=== PATIENT | female | born 1960 | race Caucasian/White ===

== ENCOUNTER 2018-05-31 06:57 | Day surgery (SDC) | payer BC ==
[~2018-05-31 06:57] MED LIST: Acetaminophen TAB* 325 MG PO PRN; Buffered Lidocaine 0.9% SYRIN* 5 ML/SYR SYRINGE INTRADERM ONE
[2018-05-31] MEDS ORDERED: Midazolam* 1 MG/ML 2 ML VIAL (2 MG) ONE (07:30)
[2018-05-31] MEDS ORDERED: fentaNYL* 50 MCG/ML 2 ML VIAL (100 MCG VIAL) ONE (07:30)
[2018-05-31] MEDS ORDERED: Ondansetron INJ* 2 MG/ML VIAL ONE (07:40)
[2018-05-31] MEDS ORDERED: Lidocaine 2% PF * 5 ML VIAL ONE (07:48)
[2018-05-31] MEDS ORDERED: Propofol* 10 MG/ML 20 ML BTL IV PUSH ONE (07:48)
[2018-05-31 08:27] VITALS: BP 128/79
[2018-05-31] MEDS ORDERED: Neomycin/Polymy/Dex OPHTH.OIN* 3.5 GM ONE (10:58)
[2018-05-31] MEDS ORDERED: Tetracaine 0.5% OPTH.SOL 4 ML* 1 DROP BTL ONE (10:58)
[2018-05-31] MEDS ORDERED: Lidocaine 1%* 5 ML VIAL ONE (10:58)
[2018-05-31] MEDS ORDERED: acetaZOLAMIDE TAB* 250 MG ONE (10:58)
[2018-05-31] MEDS ORDERED: Phenylephrine 2.5% OPTH.SOL* 2 ML BTL ONE (10:58)
[2018-05-31] MEDS ORDERED: Tropicamide 1% OPTH.SOL* BTL ONE (10:58)
[2018-05-31] MEDS ORDERED: Cyclopentolate 1% OPTH.SOL* 2 ML BTL ONE (10:58)
[2018-05-31] MEDS ORDERED: Povidone Iodine 5% OPTH* 30 ML BTL ONE (10:58)
[2018-05-31] MEDS ORDERED: Ketorolac 0.5% OPHTH (NF) 0.5 % 5 ML BTL ONE (10:58)
--- NOTE | 2018-06-07 09:02 | OP ---
DATE OF OPERATION: 05/31/18 - [facility] DATE OF : 58 SURGEON: Neftaly Da Silva MD ANESTHESIA: Monitored anesthesia care. PRE-OP DIAGNOSIS: Cataract, right eye. POST-OP DIAGNOSIS: Cataract, right eye. OPERATIVE PROCEDURE: Extracapsular cataract extraction of the right eye with intraocular lens implant. IMPLANTS: SN60WF 24.5 diopter lens of the right eye. COMPLICATIONS: None. DESCRIPTION OF PROCEDURE: The patient was given phenylephrine 2.5 % and cyclopentolate 1% eye drops to the operative eye in the preoperative area. The patient was taken to the operating room where a time-out was taken to identify the correct patient, site, and side of surgery. The patient's right eye was prepped and draped in the usual sterile fashion with 5% Betadine. A second time -out was taken to verify the correct patient, side, and site of surgery, as well as the correct lens implant. A lid speculum was placed to the right eye. A 1mm paracentesis blade was used to make a clear corneal incision. Preservative -free 1% lidocaine was injected into the anterior chamber. DisCoVisc was then injected into the anterior chamber. A 2.75 mm keratome blade was used to make a triplanar incision. A cystotome initiated a capsulorrhexis, which was completed with Utrata forceps in a continuous and curvilinear manner. Hydrodissection of the lens was performed with BSS on a cannula. The lens could be spun in a capsular bag. The phacoemulsification handpiece was used with a [id number] technique to remove the nucleus. The I/A hand-piece then removed the residual cortical lens material. DisCoVisc was injected to inflate the capsular bag. The planned SN60WF 24.5 diopter lens was injected into the capsular bag. The residual DisCoVisc was removed from the eye with the I/A handpiece. The corneal incisions were hydrated and no leaks occurred at physiologic pressure around 20 mmHg per palpation. The lid speculum was removed and drapes were removed. Maxitrol ointment was placed to the surface of the operative eye. An adhesive patch and shield was then placed on the operative eye. The patient was taken to the postoperative area in stable condition. [id number]/[facility] #: [id number] [facility]
== END 2018-05-31 08:34 | disposition home or self-care (01) ==
LOC: OREAST 06:57
PROVIDERS: ATTEND Student in an Organized Health Care Education/Training Program
DX: H25.11 Age-related nuclear cataract, right eye (principal); H53.2 Diplopia; Z87.891 Personal history of nicotine dependence; F41.8 Other specified anxiety disorders; G35 Multiple sclerosis
CPT/HCPCS: A9270-GY; J2250; J2405; J2704; J3010; V2632

== ENCOUNTER 2018-06-07 08:59 | Day surgery (SDC) | payer BC ==
[2018-06-07] MEDS ORDERED: Midazolam* 1 MG/ML 2 ML VIAL (2 MG) ONE ×2 (09:44→10:14)
[2018-06-07] MEDS ORDERED: Ondansetron INJ* 2 MG/ML VIAL IV ONE (09:53)
[2018-06-07] MEDS ORDERED: Ondansetron INJ* 2 MG/ML VIAL ONE (09:55)
[2018-06-07] MEDS ORDERED: Tetracaine 0.5% OPTH.SOL 4 ML* 1 DROP BTL ONE (10:20)
[2018-06-07] MEDS ORDERED: Povidone Iodine 5% OPTH* 30 ML BTL ONE (10:20)
[2018-06-07] MEDS ORDERED: Cyclopentolate 1% OPTH.SOL* 2 ML BTL ONE (10:20)
[2018-06-07] MEDS ORDERED: Ketorolac 0.5% OPHTH (NF) 0.5 % 5 ML BTL ONE (10:20)
[2018-06-07] MEDS ORDERED: Lidocaine 1%* 5 ML VIAL ONE (10:20)
[2018-06-07] MEDS ORDERED: acetaZOLAMIDE TAB* 250 MG ONE (10:20)
[2018-06-07] MEDS ORDERED: Neomycin/Polymy/Dex OPHTH.OIN* 3.5 GM ONE (10:20)
[2018-06-07] MEDS ORDERED: Phenylephrine 2.5% OPTH.SOL* 2 ML BTL ONE (10:20)
[2018-06-07] MEDS ORDERED: Tropicamide 1% OPTH.SOL* BTL ONE (10:20)
[2018-06-07 10:49] VITALS: BP 129/76
--- NOTE | 2018-06-08 10:54 | OP ---
DATE OF OPERATION: 06/07/18 - [facility] DATE OF : 58 SURGEON: Neftaly Da Silva MD ANESTHESIA: Monitored anesthesia care. PREOPERATIVE DIAGNOSIS: Cataract, left eye. POSTOPERATIVE DIAGNOSIS: Cataract, left eye. OPERATIVE PROCEDURE: Extracapsular cataract extraction of the left eye with intraocular lens implant. IMPLANT: SN60WF 24.0 diopter lens to the left eye. COMPLICATIONS: None. DESCRIPTION OF PROCEDURE: The patient was given phenylephrine 2.5 % and cyclopentolate 1% eye drops to the operative eye in the preoperative area. The patient was taken to the operating room where a time-out was taken to identify the correct patient, site, and side of surgery. The patient's left eye was prepped and draped in the usual sterile fashion with 5% Betadine. A second time -out was taken to verify the correct patient, side, and site of surgery, as well as the correct lens implant. A lid speculum was placed to the left eye. A 1mm paracentesis blade was used to make a clear corneal incision. Preservative-free 1% lidocaine was injected into the anterior chamber. DisCoVisc was then injected into the anterior chamber. A 2.75 mm keratome blade was used to make a triplanar incision. A cystotome initiated a capsulorrhexis, which was completed with Utrata forceps in a continuous and curvilinear manner. Hydrodissection of the lens was performed with BSS on a cannula. The lens could be spun in a capsular bag. The phacoemulsification handpiece was used with a [id number] technique to remove the nucleus. The I/A handpiece then removed the residual cortical lens material. DisCoVisc was injected to inflate the capsular bag. The planned SN60WF 24.0 Diopter lens was injected into the capsular bag. The residual DisCoVisc was removed from the eye with the I/A handpiece. The corneal incisions were hydrated and no leaks occurred at physiologic pressure around 20 mmHg per palpation. The lid speculum was removed and drapes were removed. Maxitrol ointment was placed to the surface of the operative eye. An adhesive patch and shield was then placed on the operative eye. The patient was taken to the postoperative area in stable condition. [id number]/[facility] #: [id number] [facility]
== END 2018-06-07 10:52 | disposition home or self-care (01) ==
LOC: OREAST 08:59
PROVIDERS: ATTEND Student in an Organized Health Care Education/Training Program
DX: H25.12 Age-related nuclear cataract, left eye (principal); H53.2 Diplopia; G47.33 Obstructive sleep apnea (adult) (pediatric); K21.9 Gastro-esophageal reflux disease without esophagitis; G35 Multiple sclerosis
CPT/HCPCS: A9270-GY; J2250; J2405; V2632

== ENCOUNTER 2018-12-05 17:40 | Observation (INO) | payer BC ==
--- NOTE | 2018-12-05 18:17 | ED ---
Dizziness - HPI Summary HPI Summary: This patient is a 58 year old F brought to ED by EMS with a chief complaint of AMS onsetting two hours ago. Patient is accompanied by and friend, who provide patient information. Patient is unable to provide any information due to altered mental status, level 5 caveat. Per and friend, patient was at home working on a house project when she began complaining of blurry vision. Per friend, patient displayed sudden onset dizziness, fatigue, and was vomiting. Following onset, the patient could not walk or sit up. Sx onset within 30 seconds. notes that the patient walks, climbs stairs, and can drive at baseline. notes that the patient has poor short-term memory at baseline as well. 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 She recently began to display right leg weakness/foot drop and episodes of shaking and body tensing lasting no more than a few seconds. Patient has had spasm episodes but not seizures. Patient is currently being treated for MS by Dr. Vergara with regular 1000mg Solu Medrol infusions. Last infusion was on 11/20/18. [employer] patient was given 50 mg Benadryl and 4 mg Zofran IV by EMS. PMHx for MS, stress incontinence, DDD in neck, gastritis, anxiety, and depression, but not DM , lupus, CHF, HTN, and sleep apnea. PSHx for appendectomy and cataracts. Patient does not use alcohol, uses marijuana, and is a former smoker. FHx of cardiac disease. LEVEL 5 CAVEAT DUE TO PATIENT ALTERED MENTAL STATUS. - History Of Current Complaint Chief Complaint: EDDizziness Stated Complaint: NAUSEA/VERTIGO PER EMS Time Seen by Provider: 12/05/18 17:52 Hx Obtained From: Family/Encapsulator - and friend Hx From Patient Unobtainable Due To: Altered Mental Status Onset/Duration: Still Present, Suddenly - Two hours ago within 30 seconds Character: Weak Aggravating Factor(s): Nothing Alleviating Factor(s): Nothing Associated Signs And Symptoms: Positive: Vomiting, Other: - dizziness, AMS - Allergies/Home Medications Allergies/Adverse Reactions: Allergies Allergy/AdvReac Type Severity Reaction Status Date / Time bee venom protein (honey bee) Allergy Severe Swelling Verified 11/20/18 11:10 codeine Allergy Severe Nausea Verified 11/20/18 11:10 Home Medications: Home Medications Amphetamine/Dextroamph ER(NF) [Adderal XR (NF)] 90 mg PO QAM 12/05/18 [History Confirmed 12/05/18] Docusate CAP* [Colace Cap*] 200 mg PO QPM 12/05/18 [History Confirmed 12/05/18] Melatonin 5 mg PO BEDTIME 12/05/18 [History Confirmed 12/05/18] lamoTRIgine TAB(*) [LaMICtal TAB(*)] 25 mg PO DAILY 12/05/18 [History Confirmed 12/05/18] PMH/Surg Hx/FS Hx/Imm Hx Endocrine/Hematology History: Denies: Hx Diabetes, Hx Systemic Lupus Erythematosus Cardiovascular History: Denies: Hx Congestive Heart Failure, Hx Hypertension, Hx Pacemaker/ICD Respiratory History: Denies: Hx Sleep Apnea - is going to have sleep study done GI History: Reports: Other GI Disorders - gastritis- uses omeprazole History: Reports: Other Problems/Disorders - stress incontinence Denies: Hx Renal Disease Musculoskeletal History: Reports: Other Musculoskeletal History - DDD in neck Denies: Hx Rheumatoid Arthritis Sensory History: Reports: Hx Cataracts - both eyes, Hx Contacts or Glasses - glasses Denies: Hx Hearing Aid Opthamlomology History: Reports: Hx Cataracts - both eyes, Hx Contacts or Glasses - glasses Neurological History: Reports: Hx Nerve Disease Psychiatric History: Reports: Hx Anxiety - occassional from MS new DX, Hx Depression - on meds Denies: Hx Panic Disorder - Cancer History Hx Chemotherapy: No Hx Radiation Therapy: No - Surgical History Surgery Procedure, Year, and Place: appendectomy-age 15. CATARACTS Hx Anesthesia Reactions: No Infectious Disease History: No Infectious Disease History: Denies: Traveled Outside the [place] in Last 30 Days - Family History Known Family History: Positive: Cardiac Disease - Social History Alcohol Use: None Alcohol Amount: 1/2 beer Hx Substance Use: Yes Substance Use Type: Reports: Marijuana Substance Use Comment - Amount & Last Used: For MS Hx Tobacco Use: Yes Smoking Status (MU): Former Smoker Amount Used/How Often: not a very heavy smoker- social smoker Review of Systems - ROS Summary Review of Systems Summary: COMPLETE REVIEW OF SYSTEMS UNABLE TO BE OBTAINED DUE TO PATIENT ALTERED MENTAL STATUS. LEVEL 5 CAVEAT Negative: Fever Positive: Vomiting Neurological: Other - Lethargy, Dizziness, AMS All Other Systems Reviewed And Are Negative: No Physical Exam - Summary Physical Exam Summary: VITAL SIGNS: Reviewed. GENERAL: Patient is a well-developed and nourished female who is lying comfortable in the stretcher.Patient is not in any acute respiratory distress. HEAD AND FACE: No signs of trauma. No ecchymosis, hematomas or skull depressions. No sinus tenderness. EYES: PERRLA, EOMI x 2, No injected conjunctiva, no nystagmus. No photophobia. EARS: Hearing grossly intact. Ear canals and tympanic membranes are within normal limits. MOUTH: Oropharynx within normal limits. Oral mucosa dry. NECK: Supple, trachea is midline, no adenopathy, no JVD, no carotid bruit, no c- spine tenderness, neck with full ROM. No meningeal signs, no Kernig's or brudzinskis signs. CHEST: Symmetric, no tenderness at palpation LUNGS: Clear to auscultation bilaterally. No wheezing or crackles. CVS: Regular rate and rhythm, S1 and S2 present, no murmurs or gallops appreciated. ABDOMEN: Soft, non-tender. No signs of distention. No rebound no guarding, and no masses palpated. Bowel sounds are normal. EXTREMITIES: FROM in all major joints, no edema, no cyanosis or clubbing. NEURO: Obtunded, unable to follow any commands. SKIN: Dry and warm COMPLETE PHYSICAL UNABLE TO BE OBTAINED DUE TO PATIENT ALTERED MENTAL STATUS, LEVEL 5 CAVEAT Triage Information Reviewed: Yes Vital Signs On Initial Exam: Initial Vitals Temp Pulse Resp BP Pulse Ox 97.8 F 86 14 181/103 99 12/05/18 17:43 12/05/18 17:43 12/05/18 17:43 12/05/18 17:43 12/05/18 17:43 Vital Signs Reviewed: Yes Diagnostics - Vital Signs Vital Signs Temp Pulse Resp BP Pulse Ox 12/05/18 17:43 97.8 F 86 14 181/103 99 - Laboratory Result Diagrams: 12/05/18 18:29 12/05/18 18:29 Lab Statement: Any lab studies that have been ordered have been reviewed, and results considered in the medical decision making process. - Radiology CXR Radiology Interpretation Completed By: ED Physician Summary of Radiographic Findings: No acute cardiopulmonary disease. Pending official radiology review. - CT Brain CT CT Interpretation Completed By: Radiologist Summary of CT Findings: There are nonspecific white matter changes noted in bilateral frontal and. anterior parietal lobes. Findings may represent small vessel disease or. demyelinating disease. Recommend MRI for further characterization. Dr. Acosta has reviewed this radiology report. - EKG 1834 Cardiac Rate: NL - 70 BPM EKG Rhythm: Sinus Rhythm ST Segment: Normal Summary of EKG Findings: NSR at 70 BPM, no ST elevations, normal axis. Re-Evaluation - Re-Evaluation First Eval Re-Evaluation Time: 18:55 Comment: Patient is beginning to regain function and speak again. GCS 15 upon re -evaluation. Second Eval Re-Evaluation Time: 21:43 Comment: Discussed results with patients. Patient was accepted for admission to the hospital by Dr. Sterling with dx of MS exacerbation. Patient understand and agrees with this plan. Dizzy Course/Dx - Course Assessment/Plan: Patient is a 58-year-old female who presents to the emergency room via ambulance with chief complaint of having nausea vomiting dizziness and apparently the patient collapsed to the floor 2 hours ago. The patient has history of for muscle spasms and intermittent does the patient, the patient when she gets the MS acute exacerbations. The patients significant other reports that she usually gets about a gram of solu-medrol infusions every week. EMS transported the patient was given Zofran for nausea and vomiting and Benadryl. I discussed my physical exam and findings with Dr. Billy from neurology and he recommends for the patient to have a full workup including head CT and to rule out any type of infection. Blood work without any significant abnormality except for hematocrit 42, ABG shows a pH of 7.42, PCO2 34, PO2 104, O2 sat on 100%. Urinalysis is negative for UTI. Urine toxicology positive for amphetamines and cannabinoids. Head CT impression: There are nonspecific white matter changes noted in the bilateral frontal and anterior parietal lobes. Findings may represent small vessel disease but they myelination disease. Recommend an MRI of for further characterization. Chest x -ray impression: No acute pathology. In the ED course the patient is getting better. The patient is able to speak however she has a stable weakness all over her body. Therefore as recommended by Dr. Billy the patient will be admitted to the hospital services. I discussed the case with Dr. Sterling who accepted the patient for admission. - Diagnoses Provider Diagnoses: Multiple sclerosis exacerbation - Provider Notifications Discussed Care Of Patient With: Leslie Billy Time Discussed With Above Provider: 18:23 Instructed by Provider To: Other - Discussed patient case with Dr. Billy who recommended a head CT and blood work. 2106: Discussed patient case with Dr. Sterling , hospitalist, who accepted the patient for admission. Discharge - Sign-Out/Discharge Documenting (check all that apply): Patient Departure - admit Patient Received Moderate/Deep Sedation with Procedure: No - Discharge Plan Condition: Good Disposition: ADMITTED TO [facility] Referrals: Holli Simon MD [Primary Care Provider] - - Billing Disposition and Condition Condition: GOOD Disposition: Admitted to [facility] - Attestation Statements Document Initiated by Harjinderibe: Yes Documenting Scribe: Vikram Escamilla Provider For Whom Aaron is Documenting (Include Credential): Leon Acosta MD Scribe Attestation: Vikram Del Rio, scribed for Leon Acosta MD on 12/05/18 at 2200. Scribe Documentation Reviewed: Yes Provider Attestation: The documentation as recorded by the scribe, Vikram Escamilla accurately reflects the service I personally performed and the decisions made by , Leon Acosta MD Status of Scribe Document: Viewed
[2018-12-05] MEDS ORDERED: NS 0.9% 1000 ML** 1,000 ML IV ONE (18:18)
[2018-12-05 18:43] LABS: ABS Basophils 0 10^3/ul (0-0.2); ABS Eosinophils 0.1 10^3/ul (0-0.6); ABS Lymphocytes 1.4 10^3/ul (1.0-4.8); ABS Monocytes 0.7 10^3/ul (0-0.8); ABS Nucleated RBC 0 10^3/ul; Eosinophil % 1.5 %; Hematocrit 42 % (33-41); Hemoglobin 13.9 g/dL (12.0-16.0); Lymphocyte % 14.7 %; Mean Corpuscular HGB Conc 33 g/dL (31-36); Mean Corpuscular Hemoglobin 32 pg (27-31); Mean Corpuscular Volume 95 fL (80-97); Mean Platelet Volume 7.9 fL (7.4-10.4); Nucleated Red Blood Cells % 0; Platelet Count 217 10^3/uL (150-450); Red Blood Count 4.38 10^6 /uL (3.70-4.87); Red Cell Distribution Width 13 % (10.5-15); White Blood Count 9.2 10^3/uL (3.5-10.8)
[2018-12-05 19:12] LABS: ALT 24 U/L (7-52); AST 22 U/L (13-39); Albumin 4.6 g/dL (3.2-5.2); Alkaline Phosphatase 75 U/L (34-104); Anion Gap 8 mmol/L (2-11); BUN/Creatinine Ratio 14.7 (8-20); Blood Urea Nitrogen 14 mg/dL (6-24); CO2 Carbon Dioxide 25 mmol/L (22-32); Calcium 9.2 mg/dL (8.6-10.3); Chloride 104 mmol/L (101-111); Creatine Kinase 97 U/L (10-223); EGFR African American 72.9 (>60); EGFR Non-African American 60.2 (>60); Globulin 2.3 g/dL (2-4); Glucose 93 mg/dL (70-100); Magnesium 2.1 mg/dL (1.9-2.7); Potassium 3.9 mmol/L (3.5-5.0); Sodium 137 mmol/L (135-145); Total Protein 6.9 g/dL (6.4-8.9)
[2018-12-05 19:28] LABS: Acetaminophen < 15 mcg/mL; Alcohol < 10 mg/dL (<10); Salicylate < 2.50 mg/dL (<30)
[2018-12-05 19:43] LABS: TSH (Thyroid Stimulating Horm) 0.65 mcIU/mL (0.34-5.60)
[2018-12-05 19:54] LABS: Urine Appearance Clear; Urine Bilirubin Negative (Negative); Urine Blood Negative (Negative); Urine Color Straw; Urine Glucose Negative (Negative); Urine Ketones Trace (Negative); Urine Nitrite Negative (Negative); Urine Protein Negative (Negative); Urine Specific Gravity 1.004 (1.010-1.030); Urine Urobilinogen Negative (Negative)
[2018-12-05 20:07] LABS: Urine Benzodiazepine Screen None Detected (None Detect); Urine Opiates Screen None Detected (None Detect)
[2018-12-05] MEDS ORDERED: Acetaminophen TAB* 325 MG PO PRN (22:03)
[2018-12-05] MEDS ORDERED: Meclizine TAB* 12.5 MG PO PRN (22:06)
[2018-12-05] MEDS ORDERED: Ondansetron TAB* 4 MG PO PRN (22:06)
[2018-12-05] MEDS ORDERED: Metoclopramide TAB* 10 MG PO PRN (22:06)
[2018-12-05] MEDS ORDERED: Melatonin 3 MG TAB PO SCH (23:00)
[2018-12-05] MEDS ORDERED: ALPRAZolam TAB* 0.5 MG PO SCH (23:00)
[2018-12-05] MEDS ORDERED: Ibuprofen TAB* 600 MG PO PRN (23:59)
[2018-12-06] MEDS: Gabapentin CAP(*) 300 MG PO SCH ×3 (00:01→14:13)
--- NOTE | 2018-12-06 02:08 | HP ---
CC: Dr. Holli Simon; Dr. Vergara * HISTORY AND PHYSICAL: DATE OF ADMISSION: 12/05/18. PRIMARY CARE PROVIDER: Dr. Holli Simon. OTHER PROVIDERS: Dr. Billy in consultation. ATTENDING PHYSICIAN: Dr. Aurora Sterling * (dictated by Al Sandoval NP) CHIEF COMPLAINT: AMS. HISTORY OF PRESENT ILLNESS: Mrs. Shelton is a 58-year-old female with past medical history significant for secondary progressive MS, stress incontinence, DDD, gastritis, anxiety, depression who presented to the emergency department today via EMS due to altered mental status. Initial information was provided by and friends as the patient was not responding to questions. Followup information was gathered from and friends also as the patient reports she does not recall the events leading up to her presentation to the emergency department, but in short, patient was at home working on a project when she started to notice increasing blurred vision, dizziness, fatigue, and vomiting. Following these symptoms, she could not walk or sit up. Family reports she could only respond by raising her eyebrows. and friends report that this lasted for approximately 2 hours and resolved while she has been here in the emergency department. It should be mentioned that the patient can walk, climb stairs, and drive at baseline. She does have significant poor short-term memory at baseline as well. While in the emergency room, patient was evaluated by Dr. Acosta, who was unable to obtain review of systems as she was altered and not answering his questions. Labs were obtained, which were unremarkable with the exception of her urine toxicology, which was positive for amphetamines and cannabis, both of which she is prescribed. She also had a chest x-ray, which was unremarkable and a brain CT, which revealed nonspecific white matter changes noted in bilateral frontal and anterior parietal lobes. Findings may represent small vessel disease and demyelinating disease. Given these findings and the patient's presentation, hospitalists were asked to admit. On my assessment of the patient in the emergency room #16, patient is awake, alert, oriented. She is eating a tuna sandwich. She does not recall any events leading up to her presentation to the emergency room, therefore history was obtained from her and friends. PAST MEDICAL HISTORY: 1. Secondary progressive MS. 2. Stress incontinence. 3. DDD. 4. Gastritis. 5. Anxiety. 6. Depression. PAST SURGICAL HISTORY: 1. Appendectomy. 2. Cataract surgery. HOME MEDICATIONS: 1. Adderall 90 mg p.o. q.a.m. 2. Xanax 1 mg p.o. at bedtime. 3. Vitamin D 1000 units p.o. q.p.m. 4. Cannabis oil 5 mL inhalation t.i.d. p.r.n. 5. Colace 200 mg p.o. q.p.m. 6. Cymbalta 120 mg p.o. q.a.m. 7. Vitamin B12 at 1000 mcg p.o. every other day. 8. EpiPen 0.3 mg injection once p.r.n. 9. Melatonin 5 mg p.o. at bedtime. 10. Meclizine 25 mg p.o. t.i.d. p.r.n. 11. Gabapentin 300 mg p.o. t.i.d. 12. Multivitamin with calcium, iron, and minerals 1 each p.o. q.p.m. 13. Reglan 5 mg p.o. b.i.d. p.r.n. 14. [place]-3 one capsule p.o. q.p.m. 15. Zofran 8 mg p.o. q.6 hours p.r.n. 16. Vitamin E at 1000 units p.o. q.p.m. 17. Lamotrigine 25 mg p.o. daily. ALLERGIES: BEE VENOM and CODEINE. FAMILY HISTORY: Patient reports family history is positive for CAD. SOCIAL HISTORY: Patient is a former smoker. Patient reports approximately 1 beer every evening. Patient denies recreational drug use with the exception of marijuana, which she uses for spasm. Patient lives with her . At baseline , patient is independent in her ADLs. The patient's , Beena, will be her surrogate decision maker in the event she is unable to make her own decision and her phone number is [phone]. REVIEW OF SYSTEMS: Constitutional: No fevers, no anorexia. Cardiac: No chest pain. No edema. Respiratory: No cough. No hemoptysis or shortness of breath. GI: No nausea, vomiting. No diarrhea. No abdominal pain. : No gross hematuria. No dysuria. Neuro: No focal weakness or sensory loss. Eyes : No visual complaints. ENT: No dysphagia. Musculoskeletal: No arthralgias or myalgias. Skin: No rashes or lesions. Psych: No psychosis. PHYSICAL EXAMINATION GENERAL: Mrs. Shelton is a 58-year-old female, who is well developed, sitting in the ED stretcher. She appears to be in no acute distress. She appears stated age. VITAL SIGNS: Temp 97.8, HR 73, RR 16, O2 saturation 100% on room air, BP is 134 /77. HEENT: PERRLA. EOMs intact. Oral mucosa is moist without lesions. Posterior pharynx is clear. NECK: Full range of motion. No lymphadenopathy. RESPIRATORY: Symmetrical chest expansion. No accessory muscle use. Lungs are clear to auscultation. No rhonchi, wheezes, or rubs. CV: Regular rate and rhythm. S1, S2 present. No murmurs, rubs, or gallops. EXTREMITIES: Skin is warm and smooth bilaterally. No edema. No clubbing or cyanosis. Pedal pulses are 2+ bilaterally. MUSCULOSKELETAL: Full range of motion. No pain or deformities. ABDOMEN: Soft, nontender to palpation. Bowel sounds are normoactive throughout. NEUROLOGIC: Awake, alert, and oriented x4. Cranial nerves II through XII are grossly intact. Moves all extremities. Motor strength is 5/5 in the upper and lower extremities. No drift. Coordination is intact. Sensation is intact. SKIN: Grossly intact without lesions. DIAGNOSTIC STUDIES/LABORATORY DATA: WBC 9.2, hemoglobin 13.9, hematocrit 42, platelets 217,000. Sodium 137, potassium 3.9, chloride 104, carbon dioxide 25, BUN 14, creatinine 0.94, lactic acid is 0.7, TSH is 0.65. Urine is positive for ketones. Urine toxicology is positive for amphetamines and cannabis. Blood gas, ABG, pH of 7.42, pCO2 of 34, pO2 of 104, 23.6, O2 saturation of 100%, base excess is negative at 1.7. Chest x-ray: Impression: No active cardiopulmonary disease. EKG: Impression: Normal sinus rhythm. No ST changes. Brain CT: Impression: There are nonspecific white matter changes noted in bilateral frontal and anterior parietal lobes. Findings may suggest small vessel disease, demyelinating disease. Recommend MRI for further characterization. ASSESSMENT AND PLAN: Mrs. Shelton is a 58-year-old female with past medical history significant for secondary progressive multiple sclerosis, stress incontinence, degenerative disk disease, gastritis, anxiety, depression; who presented to the emergency department today with altered mental status and there was concern for multiple sclerosis flare. The patient will be placed OBV. 1. Altered mental status. The patient's symptoms have completely resolved upon my assessment. There is concern for recurrence of patient's multiple sclerosis symptoms as she has similar episodes which are related to MS, but her reports this episode was more severe as she was "paralyzed." suggests that this episode could have been triggered by the fact that they just recently had a long plane flight from [place] and stress like this can cause her to have a relapse in symptoms. Either way, patient will be placed on telemetry for observation. We will have neuro checks. We will place seizure precautions. She will be seen by Dr. Billy tomorrow, who had been consulted by the ED provider. Dr. Billy will decide on treatment and further imaging. 2. Secondary progressive multiple sclerosis. As mentioned above, the patient was diagnosed with secondary progressive multiple sclerosis. This diagnosis occurred approximately 14 months ago and her baseline displayed mainly cognitive impairment and speech difficulties. More recently, she started to display right leg weakness/foot drop and episodes of shaking and body tensing lasting more than a few seconds. Patient is currently being seen by Dr. Vergara and having steroid infusions. As mentioned above, patient will be seen by Dr. Billy tomorrow. Patient was requesting to use her cannabis oil vape here in the hospital, but we discussed medications that are allowed in the hospital. I would recommend that the patient discuss this further tomorrow with the pharmacy and her primary nurse. 3. Stress incontinence: Supportive care. 4. Degenerative disk disease: Supportive care and resume patient's home medications. 5. Gastritis: reports that this has resolved with the use of PPI and she no longer needs this. I have ordered Zofran as same as her home dose. 6. Anxiety and depression: We will continue patient's home medications as same. 7. FEN: I have ordered the patient a regular diet. 8. Code status: The patient is a full code. 9. DVT prophylaxis: Based on the DVT risk assessment, patient is at low risk. I will order SCDs for ambulation. TIME SPENT: Approximately 75 minutes were spent on this admission, greater than half the time was spent with the patient and her friends and family obtaining my history, performing my physical exam, and reviewing my plan of care. This case has been reviewed with my attending, Dr. Sterling, who is in agreement with my plan of care. Reviewed by AL SANDOVAL NP 12/11/18 @ 1939 [id number] #: [id number] [facility]
[2018-12-06 07:16] LABS: ABS Basophils 0 10^3/ul (0-0.2); ABS Eosinophils 0.2 10^3/ul (0-0.6); ABS Lymphocytes 2.4 10^3/ul (1.0-4.8); ABS Monocytes 0.6 10^3/ul (0-0.8); ABS Neutrophils 3.1 10^3/ul (1.5-7.7); ABS Nucleated RBC 0 10^3/ul; Eosinophil % 2.8 %; Hematocrit 38 % (33-41); Hemoglobin 12.6 g/dL (12.0-16.0); Mean Corpuscular HGB Conc 33 g/dL (31-36); Mean Corpuscular Hemoglobin 31 pg (27-31); Mean Corpuscular Volume 95 fL (80-97); Mean Platelet Volume 8.1 fL (7.4-10.4); Nucleated Red Blood Cells % 0; Platelet Count 187 10^3/uL (150-450); Red Blood Count 4.03 10^6 /uL (3.70-4.87); Red Cell Distribution Width 13 % (10.5-15); White Blood Count 6.3 10^3/uL (3.5-10.8)
[2018-12-06 07:32] LABS: Calcium 8.9 mg/dL (8.6-10.3); EGFR African American 87.6 (>60); EGFR Non-African American 72.4 (>60); Potassium 3.8 mmol/L (3.5-5.0)
[2018-12-06 08:29] LABS: TSH (Thyroid Stimulating Horm) 0.76 mcIU/mL (0.34-5.60)
[2018-12-06] MEDS ORDERED: DULoxetine DR CAP* 60 MG CAP.DR PO SCH (09:00)
[2018-12-06] MEDS ORDERED: lamoTRIgine TAB(*) 25 MG PO SCH (09:00)
[2018-12-06] MEDS ORDERED: Amphetamine/Dextroamph ER(NF) 10 MG CAP.ER PO SCH (09:00)
[2018-12-06] MEDS ORDERED: levETIRAcetam LIQ* 500 MG/5 ML UDC PO SCH (13:00)
--- NOTE | 2018-12-06 14:31 | CONS ---
NEUROLOGY CONSULTATION NOTE: DATE OF CONSULT: 12/06/18 CONSULTING PROVIDER: Dr. Acosta. REASON FOR CONSULT: Altered mental status. CHIEF COMPLAINT: Shaking episode with generalized myoclonic-like jerks. HISTORY OF PRESENT ILLNESS: Ms. Shelton is a 58-year-old right-handed female with a past medical history of secondary progressive multiple sclerosis, who is currently receiving monthly high-dose Solu-Medrol infusion. She follows up with Dr. Jean Carlos Vergara. She has neurological sequelae related to the multiple sclerosis that include cognitive impairment, vertigo, double vision, and mood and behavioral changes. The patient also has a past medical history of anxiety and depression and sees Dr. Aleman for psychiatry. The patient stated that she was in normal state of health over the past week. She went to [place], [place] to visit her son. She stayed there for 6 days. She missed the lamotrigine dose which she takes for mood stabilization. She was taking 50 mg daily. She restarted the lamotrigine yesterday. The patient flew back from [place] on Tuesday. She had a devastated long trip. She got home and felt extremely exhausted. Tuesday morning the patient woke up feeling off and not herself. She developed what her described as spastic episodes for which she has had in the past. Apparently, she has had a few episodes where she was twitching, abnormally moving in [place], [place]. Her son witnessed one of the events. She never lost awareness or consciousness at that time. However, yesterday the patient had complete loss of awareness. She reported that she had abnormal jerking-like movements for about 2 minutes and then became paralyzed. She could not move but was able to hear everyone around her. She was having trouble moving her head but she was able to slightly respond by elevating her eyebrows. According to her spouse, this has been the worst episode that she has ever had. She had 4 episodes like this in the past over the last few months, but nothing where she completely lost motor tone. She was supposedly paralyzed for about 2 hours. She denied any acute neck pain. After the 2 hours, she was able to verbalize and move her extremities like nothing had happened. Again, approximately she had a similar episode last week and also another one 6 weeks ago where her legs felt funny and she started jerking her upper extremities. She also has this abduction and flexion of the arms, flexing towards her anterior torso. Currently, the patient denied any acute headaches, visual disturbance, or swallowing difficulty. She has chronic diplopia with blurred vision and uses prism lenses. She has chronic vertigo and uses meclizine. She also has insomnia and anxiety and takes Xanax nightly. PAST MEDICAL HISTORY: 1. Secondary progressive multiple sclerosis. 2. Stress incontinence. 3. Degenerative disk disease. 4. Gastritis. 5. Anxiety. 6. Depression. PAST SURGICAL HISTORY: 1. Appendectomy. 2. Cataract surgery. HOME MEDICATIONS: 1. Duloxetine 120 mg in the morning. 2. Xanax 1 mg p.o. at bedtime. 3. EpiPen. 4. Ondansetron 8 mg p.o. every 6 hours as needed for nausea. 5. Meclizine 25 mg p.o. 3 times a day as needed for vertigo. 6. Cyanocobalamin 1000 mcg p.o. every other day. 7. Vitamin D3 at 1000 units p.o. at night. 8. Vitamin E. 9. Multivitamins. 10. Gabapentin 300 mg p.o. t.i.d. 11. Metoclopramide 5 mg p.o. b.i.d. as needed. 12. Amphetamine. 13. Dextromethorphan. 14. Adderall 90 mg p.o. in the morning. 15. Docusate 200 mg p.o. at nighttime. 16. Melatonin 5 mg tablet p.o. at bedtime. 17. Lamotrigine 50 mg p.o. daily. ALLERGIES: BEE VENOM and CODEINE. FAMILY HISTORY: There is no family history of stroke or seizures. SOCIAL HISTORY: The patient is a former smoker. She reports drinking 1 beer occasionally. She used to be employed here at [employer]. She lives with her . She utilizes medicinal marijuana. REVIEW OF SYSTEMS: A 14-point review of systems was obtained, otherwise negative except for what was mentioned in the HPI. PHYSICAL EXAM: Vital signs: Temperature 98.1, pulse of 67, respiratory rate of 16, oxygen saturation 98%, blood pressure 145/80. General: Well-nourished, well- developed female, in no acute distress. Head: Atraumatic, normocephalic. Eyes: Conjunctivae/corneas are clear. Neck is supple and symmetrical with no carotid bruits. Lungs are clear to auscultation bilaterally. Cardiovascular: Regular rate and rhythm with normal S1, S2. Extremities: Normal range of motion with no cyanosis or edema. Skin: No skin lesions or laceration. Psych: Affect is broad and normal mood. Neurological Examination: Mental Status: Awake, alert, oriented to person, place, time, and general circumstances. Her speech and language including expression, naming , repetition, and comprehension were assessed and found to be slightly abnormal with some psychomotor slowing and some bradykinetic movements of her speech. Cranial Nerves: Normal confrontation testing bilaterally. Pupils are mid range and reactive to light, normal consensual response. Sensation is intact in the forehead, cheeks, and jaw region bilaterally. There is no facial droop or facial asymmetry while smiling. She is able to hear throughout the history process. Symmetrical palatal elevation. Normal strength and resistance. Tongue is symmetrical and midline with no atrophy or fasciculation. Motor Examination: No abnormal movements or pronator drift. Normal bulk and tone throughout. Reflexes, right/left: Brachioradialis 3/3, biceps 2/3, triceps 3/3 , patella 3/3, ankle 2/2, plantar flexor/flexor. Sensation is intact to light touch and temperature throughout. She has normal vibratory sensation to the great toes. Normal proprioception at the toes. Coordination: Normal finger-to- nose and rapid alternating movement. Gait: Narrow based, normal stance and gait. No ataxia. ASSESSMENT AND RECOMMENDATION: Ms. Kathy Shelton is a 58-year-old with a history of secondary progressive multiple sclerosis who receives monthly high- dose Solu-Medrol treatment, who presented with an episode of acute encephalopathy followed by generalized myoclonic-like jerks. Currently, her symptoms completely resolved. The patient is asymptomatic without any new focal lateralizing neurological deficits on examination other than cognitive impairment and diffuse hyperreflexia which correlates with her central demyelinating disease. Overall, based on the clinical assessment, the diagnosis here is most likely acute stress reaction in the setting of her recent trip. However, patients with multiple sclerosis are at increased risk for developing seizures. Therefore, without actually recording the episodes on EEG, we cannot entirely exclude possible seizures. However, this diagnosis is low on the differential but I still recommend and the patient agreed to be placed on antiseizure medication. I recommend starting a very low dose of levetiracetam 250 mg twice daily for 3 months. During that 3-month period, I recommend increasing the lamotrigine to at least the level of 200 mg a day which should help prevent seizures. I encouraged her to discuss this with her psychiatrist and to discuss with Dr. Vergara. I personally spoke to Dr. Vergara and reviewed my recommendations for which he agreed with the plan. If levetiracetam does minimize or reduce these episodes, then this could serve as a diagnostic and therapeutic measure. However, given her psychiatric history, the patient is at risk of developing increased agitation and irritable behavior and therefore, if she experiences any of these episodes, I recommend immediately discussing this with her psychiatrist as well as discontinuing the levetiracetam. Once the lamotrigine level is therapeutic at 200 mg a day which will take approximately 2 to 3 months, then she can slowly be weaned off levetiracetam. Other differential diagnosis such as stiff person syndrome or periodic paralysis are unlikely given her rapid improvement. We decided to start treatments with antiseizure medications since this is her fourth episode of abnormal movements within the past 2 months. I do not suspect this is an MS exacerbation since she has recovered from the symptoms within less than 12 hours. A new MS lesion will not recover this quickly and plus cannot really cause a generalized, nonfocal neurological problem. In regards to her secondary progressive multiple sclerosis, we will continue IV steroids on a monthly basis and she will follow up with Dr. Vergara. I discussed the [facility] driving rules and regulation and informed the patient that she should not be operating any heavy machinery or driving for the next 12 months. The duration of driving restriction can be decreased if she is compliant to her medications and she does not have any further episodes. I defer further recommendations to Dr. Vergara when she follows up. The patient does have a followup appointment with Dr. Vergara in January. TIME SPENT: I spent a total of 75 minutes of which more than 50% was spent obtaining history, examining the patient, education and counseling, and discussing the treatment plan with the patient and her spouse at bedside. [id number]/[facility] #: [id number] MTDD
[2018-12-06 17:43] VITALS: BP 142/82
[2018-12-06] MEDS ORDERED: [UNRECOGNIZED DRUG - OTHER] PO SCH (18:00)
[2018-12-06] MEDS ORDERED: DHA PO SCH (18:00)
[2018-12-06] MEDS ORDERED: AST PO SCH (18:00)
[2018-12-06] MEDS ORDERED: Docusate CAP* 100 MG PO SCH (18:00)
[2018-12-06] MEDS ORDERED: Cholecalciferol TAB* 1000 UNITS PO SCH (18:00)
[2018-12-06] MEDS ORDERED: EPA PO SCH (18:00)
[2018-12-06] MEDS ORDERED: PHOSPHO PO SCH (18:00)
[2018-12-06] MEDS ORDERED: KRILL PO SCH (18:00)
--- NOTE | 2018-12-07 00:09 | DS ---
DISCHARGE SUMMARY: DATE OF ADMISSION: 12/05/18 DATE OF DISCHARGE: 12/06/18 ATTENDING PROVIDER: Aurora Sterling MD * (DICTATED BY PATRIC MCKEON) PRIMARY CARE PROVIDER: Holli Simon MD PSYCHIATRIST: Bimal Aleman MD NEUROLOGIST: Jean Carlos Vergara MD PRIMARY DIAGNOSIS: Altered mental status. SECONDARY DIAGNOSES: 1. Secondary progressive multiple sclerosis. 2. Stress incontinence. 3. Degenerative disk disease. 4. Gastritis. 5. Depression. 6. Anxiety. STUDIES WHILE IN THE HOSPITAL: Chest x-ray, 12/05/18, impression: No evidence for acute disease. Brain CT, 12/05/18, impression: There are nonspecific white matter changes noted in bilateral frontal and anterior parietal lobes, findings may represent small vessel disease or demyelinating disease, recommended MRI for further classification. EKG, 12/05/18, interpretations: Normal sinus rhythm, rate 70. DISCHARGE MEDICATIONS: Home medications: 1. Adderall XR 90 mg p.o. q.a.m. 2. Alprazolam 1 mg p.o. at bedtime. 3. Cholecalciferol 1000 units p.o. q.p.m. 4. Cannabis oil/herb 5 mL inhalation t.i.d. p.r.n. 5. Docusate 200 mg p.o. q.p.m. 6. Duloxetine DR. 120 mg p.o. q.a.m. 7. Cyanocobalamin 1000 mcg p.o. every other day. 8. Epinephrine 0.3 mg injection once p.r.n. bee sting. 9. Melatonin 5 mg p.o. at bedtime. 10. Meclizine 25 mg p.o. t.i.d. p.r.n. vertigo. 11. Gabapentin 300 mg p.o. t.i.d. 12. Multivitamin for women 1 tab p.o. q.p.m. 13. Metoclopramide 5 mg p.o. b.i.d. p.r.n. nausea/vomiting. 14. [place]-3 krill oil 300 mg 1 cap p.o. q.p.m. 15. Ondansetron 8 mg p.o. q.6 hours p.r.n. nausea. 16. Vitamin E acetate 1000 units p.o. q.p.m. 17. Lamotrigine 25 mg p.o. daily. New home medication: 1. Levetiracetam 250 mg p.o. b.i.d. x3 months. HISTORY OF PRESENT ILLNESS/HOSPITAL COURSE: Ms. Shelton is a 58-year-old female with a past medical history significant for secondary progressive MS, who presents to the ER with altered mental status. This information was obtained from the patient, her , and her friend. The patient states that she was at home and felt tired, dizzy, nauseous. She states that she vomited after these symptoms, she then was unable to move. She states that her only form of communication was movement of the eyebrows. She was transported to the ER by EMS. Her symptoms resolved while in the ER. The patient and her friend also state that the patient had multiple seizures during this time. The patient's friend describes periods of what sounds like myoclonic jerking that resolved and led to paralysis. She states that this occurred multiple times. The patient states that she was aware of some of the activity that occurred and states that she remembers muscle tightness and shaking and then periods of relaxation where she could hear, but not respond. The patient's notes that she had recently been back from a trip that involved the long plane flights from [place]. The patient at this time was admitted to the telemetry floor. She was placed on seizure precautions with neuro checks. Dr. Billy was consulted. Dr. Billy saw the patient. He believed that this most likely was an acute stress reaction in the setting of her recent trip. He is concerned though as multiple sclerosis may increase the risk of seizure development. An EEG was ordered and is currently pending. The patient will be discharged on levetiracetam 250 mg twice daily for approximately 3 months. He recommends increasing lamotrigine to at least 200 mg daily to prevent seizures at which point, the levetiracetam may be titrated down and then discontinued. The patient follows with Dr. Vergara and has a followup appointment with him in January. Throughout the patient's stay, her symptoms completely resolved. She no longer had any seizure like activities or myoclonic jerks/shaking episodes, nor any periods of paralysis. The patient denies chest pain, shortness of breath, abdominal pain, nausea, vomiting, diarrhea, constipation, or pain in the extremities. She denies headache or blurred vision. She denies any neurological deficits. She does state that she has some decrease in short term memory, although she notes that this is chronic. Ms. Shelton is stable for discharge to home. PHYSICAL EXAMINATION: Vital Signs: Temperature 98.9 Fahrenheit oral, heart rate 71, respiratory rate 14, oxygen saturation 100% on room air, blood pressure 142/82. General: Ms. Shelton is a well-developed, well-nourished, middle-aged white woman, who is sitting up in bed. She appears to be in no acute distress. She appears well. HEENT: Visual johnson are grossly intact. Pupils are equally round and reactive to light and extraocular movements are intact. The sclerae is without icterus. Hearing is grossly intact. Oral mucous membranes are moist. There are no lesions. The pharynx is clear. The tongue is without lesions or ecchymosis or erythema. Neck with full range of motion. Thyroid not palpable. Trachea is at midline. There is no lymphadenopathy. Cardiovascular: Regular rate and rhythm with S1, S2 present. There are no murmurs, rubs, or gallops. There is no JVD. Respiratory: Symmetrical chest expansion with no use of accessory muscles. The lungs are clear to auscultation. There are no rhonchi, wheezes, or rubs. Abdomen: Flat. Bowel sounds are normoactive throughout. The abdomen is soft and nontender to palpation. There is no hepato-splenomegaly. Musculoskeletal: Full range of motion with no pain or deformities. Extremities: Skin is warm and smooth bilaterally. There is no clubbing, cyanosis, or edema. Radial and pedal pulses are palpable. Neuro: The patient is awake. She is alert and oriented x3. The cranial nerves are grossly intact. She is able to move all of her extremities. Motor strength is 5/5 bilaterally in upper and lower extremities. DISCHARGE PLAN: Ms. Shelton will be discharged to home. ACTIVITY: No driving until followup with Dr. Vergara, then per his recommendations. Otherwise, as tolerated. DIET: Heart healthy. MEDICATIONS: As above. EDUCATION: 1. Follow up with primary care provider in 4 to 7 days. 2. Follow up with Psychiatry in 4 to 7 days. 3. Follow up with Dr. Vergara as scheduled in January. 4. Plan per Neurology is as followed: Continue levetiracetam 250 mg b.i.d. for approximately 3 months, 1 month prescription sent to pharmacy. Increase lamotrigine to at least 200 mg per day over the next 2 to 3 months, this will be coordinated by Dr. Kiser/Dr. Vergara. After this, the levetiracetam will likely be discontinued. This will be coordinated by Dr. Vergara. 5. Return to the ER or nearest hospital if you experience any return or worsening of symptoms. Return if you experience any shortness of breath, dizziness, lightheadedness, chest discomfort, high fevers, chills, night sweats , loss of consciousness, or any other worrisome signs or symptoms. This is a summarized report of a complex medical history and hospital stay. For further details, please see the entire medical record. TIME SPENT: Approximately 35 minutes was spent on this discharge, greater than half that time was spent [id number] with the patient discussing discharge plans and instructions. PATRIC MCKEON [id number]/[facility] #: [id number] MTDRahul
[2018-12-07] MEDS ORDERED: Cyanocobalamin TAB* 500 MCG PO SCH (09:00)
--- NOTE | 2018-12-07 23:24 | EEG ---
ELECTROENCEPHALOGRAPHY REPORT: DATE OF STUDY: 12/06/18 - ROOM #[id number] DATE READ: 12/07/18 ORDERED BY: Leslie Billy MD INDICATION: Ms. Kathy Shelton is a 58-year-old female with abnormal myoclonic movements. This EEG was requested to evaluate for epileptiform discharges or electrographic seizures. TIME OF TRACIN -1648. CLINICAL STATE: Waking state. MEDICATIONS: 1. Neurontin. 2. Vitamin D. 3. Colace. 4. [place]-3. 5. Xanax. 6. Keppra. 7. Melatonin. 8. Adderall. 9. Vitamin B12. 10. Cymbalta. 11. Lamictal. 12. Tylenol. 13. Motrin. 14. Antivert. 15. Reglan. 16. Zofran. REPORT: The waking background showed appropriate organization with clearly defined anterior posterior voltage and frequency gradients. There was a well- defined posterior abdominal rhythm of 10 Hz, which was symmetrical and showed normal reactivity. There were intermittent, low voltage, diffuse beta frequencies seen throughout the recording. Hyperventilation, photic stimulation were not performed. Single electrode EKG showed normal sinus rhythm with a rate of 70 beats per minute. There were no epileptiform discharges or electrographic seizures. IMPRESSION: This is a normal waking EEG with no evidence of epileptiform discharges or electrographic seizures. There were diffuse excessive beta frequencies, which can be seen in the setting of benzodiazepine or barbiturate use. Clinical correlation is recommended. [id number]/[facility] #: [id number] MTDD
== END 2018-12-07 00:09 | disposition home or self-care (01) ==
LOC: ED 17:40 → MEDTELE 22:03
PROVIDERS: ADMIT Internal Medicine; ATTEND Internal Medicine
DX: R41.82 Altered mental status, unspecified (principal); G35 Multiple sclerosis; N39.3 Stress incontinence (female) (male); M51.34 Other intervertebral disc degeneration, thoracic region; K29.70 Gastritis, unspecified, without bleeding; F32.9 Major depressive disorder, single episode, unspecified; F41.9 Anxiety disorder, unspecified; R11.10 Vomiting, unspecified; Z87.891 Personal history of nicotine dependence
CPT/HCPCS: 36415; 70450; 71045; 80048; 80053; 80177; 80307; 80320; 80329; 81003; 82550; 82803; 83605; 83735; 84443; 84484; 85025; 93005; 95816; 96360; 99285; A9270-GY; G0378; G0480

== ENCOUNTER 2018-12-27 15:44 | Emergency (ER) | payer BC ==
--- OUTSIDE RECORDS SUMMARY | 2018-12-27 16:06 | XMS REPORT | Continuity of Care Document ---
:1960 External Reference #:[id number] Author Name Holli Simon M.D. Address [address] [place] [address] Care Team Providers Name Role Phone Holli Simon M.D. 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 [address] PayID: [id number] MICAH Geiger [id number] Effective: 2010 Policy Number: [id number] Roberto Shelton Expires: 2012 Group Name: [employer] [address] [address] PayID: [id number] MICAH Geiger [id number] Effective: 2012 Policy Number: [id number] Roberto Gerberendcecil Crow Expires: 2015 Group Name: [employer] [place] [address] [address] PayID: [id number] MICAH Geiger [id number] Problems Active Problems Provider Date Elevated blood-pressure reading without Holli Simon M.D. Onset: 01/27 diagnosis of hypertension Family History Date Family Member(s) Observation Comments Father Hypertension Father Pulmonary Embolism after ankle surgery- age 71 Mother Depression Mother Gallstones Mother CAD OR in her late 70's (LAD) First Son Healthy Second Son Healthy First Brother Hypertension First Brother Sleep Apnea , obese Paternal Grandfather Old age age 86 Paternal Grandmother Cancer, Unknown Site ? leukemia ( late 40's) Maternal Grandfather "old age" age 83 Maternal Grandmother CVA around age 80 Social History Type Date Description Comments Sex Unknown Lives With Female Partner - - 2010 Tobacco Use Start: Unknown End: Former Cigarette Smoker Quit December 2011 Unknown Tobacco Use Start: Unknown Patient is a current 1/2 ppd smoker, smokes every day Allergies, Adverse Reactions, Alerts Active Allergies Reaction Severity Comments Date Paxil Not Allergy- [place] Throat Closing 05/22/2009 Bee Sting Age 3- leg got "huge" after sting 01/18/2011 Codeine Nausea Moderate 05/16/2018 Medications Active Medications SIG Qnty Indications Ordering Provider Date Adderall 60MG 1 tab once daily Narciso Gan, 10/20/2018 Docusate Sodium 1 PO Qday For 60caps Holli Rosario 05/16/2018 100mg Constipation Blegen, M.D. Capsules Medical Marijuana Holli Rosario 12/26/2017 Blegen, M.D. Vitamin D3 1 by mouth every Holli Rosario 03/12/2017 1000Unit day (takes 1200 Iu) Blegen, M.D. Tablets Vitamin B-12 1 by mouth every Holli Rosario 03/12/2017 500mcg other day for Blegen, M.D. Tablets vitamin B12 deficiency Calcium 600 Once Per Day Holli Rosario 05/29/2014 600mg Blegen, M.D. Tablets Centrum Silver 1 by mouth every Holli P. 05/29/2014 day Blegen, M.D. Tablets Epipen 2-Viet use as directed prn 1units Holli Rosario 01/18/2011 severe allergic Blegen, M.D. 0.3mg/0.3ML Solution reaction and call Auto-Inject 911 Tenino-3 Krill Oil Holli Rosario 01/18/2011 1000mg Blegen, M.D. Capsules Levetiracetam 1 po bid for Unknown 250mg possible seizures Tablets Lamotrigine increasing Bimal Aleman 25mg gradually to 200 M.D. Tablets mg qday (for mood, seizure) Amphetamine-Dextroam Take Two Capsules Unknown phet ER By Mouth Every 30mg Caps ER Morning 24HR Gabapentin 1 PO tid Bimal Aleman 300mg M.D. Capsules Ondansetron HCL Jean Carlos Vergara 8mg Tablets Meclizine HCL 1 take by mouth Unknown 25mg tablet 3 times per Tablets day for sensation of motion Vitamin E 1 per day Unknown Capsules Alprazolam 1 PO QHS For Sleep Unknown 1mg Tablets Cymbalta 1 po qd Unknown 60mg Caps DR Part History Medications Ciprofloxacin HCL 1 tab by mouth 6tabs R10.9 Narciso 10/20/2018 - 250mg twice a day MD Malik 12/12/2018 Tablets Benzonatate 1 po tid prn 20caps Holli PJanet 06/26/2018 - 150mg cough as directed Deja Simon 06/26/2018 Capsules Benzonatate take one capsule 20caps Holli P. 06/26/2018 - 100mg by mouth three Maryse SimonDJanet 09/26/2018 Capsules times per day as needed cough (Instead Of 150 MG Dose as Not Available) Amoxicillin/Clavulana 1 by mouth twice 20tabs J01.90 Holli P. 2017 - te Potassium a day for 10 days Maryse SimonDJanet 02/06/2018 875-125mg for sinus Tablets infection- Wait To Fill Until Patient Calls Ranitidine HCL 1 by mouth twice 60caps R63.4 Holli P. 12/26/2017 - 150mg a day for [place] M.DJanet 05/16/2018 Capsules heartburn as directed Omeprazole 1 by mouth every 30caps R63.4 Holli P. 10/03/2017 - 20mg day on empty Blegen M.DJanet 12/26/2017 Capsules stomach 30 min before meal for gastritis/ heartburn Melatonin 1 by mouth as 30caps Holli P. 08/10/2017 - 3mg Capsules needed at bedtime Deja Simon 05/16/2018 for insomnia Ranitidine HCL take 1 tablet by 60tabs R11.0 Holli P. 08/10/2017 - 150mg mouth twice a day Maryse SimonDJanet 10/03/2017 Tablets for Nausea/ Heartburn Gabapentin take one capsule 90caps G47.00 Holli P. 08/10/2017 - 300mg by mouth at [place] M.DJanet 05/16/2018 Capsules bedtime for nerve pain Omeprazole 1 by mouth every 30caps Holli Rosario 03/12/2017 - 20mg day on empty Aurora M.DJanet 08/24/[address] tello for heartburn Vitamin B Complex 1 per day Holli Rosario 03/12/2017 - Maryse SimonDJanet 03/12/2017 Tablets Bactrim DS 1 by mouth twice 14tabs Holli Rosario 10/11/2016 - 800-160mg a day x 7 days Aurora M.DJanet 03/12/2017 Tablets for uti Azithromycin take 2 tablets 6tabs 461.8 Anais Mtz 05/07/2014 - 250mg today then 1 [employer] 05/20/2014 Tablets tablet daily for the next 4 days Omeprazole One per day on 30caps Holli Rosario 04/10/2014 - 20mg empty stomach as Grey Simon.DJanet 05/29/[address] lopez Nitrofurantoin 1 po bid x 7 days 14caps Holli Rosario 08/06/2013 - Monohydrate for urinary tract Grey Simon.DJanet 04/10/2014 100mg infection Capsules Zolpidem Tartrate 1 po qhs prn 15tabs Holli Rosario 08/17/2012 - 10mg insomnia Maryse SimonDJanet 08/06/2013 Tablets Xanax 1/2-1 po qhs and 20tabs Holli Rosario 05/15/2012 - 0.5mg Tablets up to bid prn Deja Simon 08/17/2012 anxiety Azithromycin 2 po qd first day 6tabs Holli Rosario 10/12/2011 - 250mg then 1 po qd x 4 Blegen M.DJanet 08/16/2012 Tablets days Albuterol HFA 2 puffs q 4 hours 1units Holli Rosario 10/12/2011 - 90mcg/Inh prn wheezing Maryse SimonDJanet 08/24/2017 Azithromycin take 2 tablets po 6tabs 465.8 Brea Serra 06/04/2011 - 250mg today and one Deja Avitia 06/22/2011 Tablets tablet po daily days 2-5 Dulera 2 PO bid 1units 465.8 Brea Serra 06/04/2011 - 100-5mcg/Act Deja Avitia 08/16/2012 Aerosol Trazodone HCL 1/2-1 po qhs for 30tabs Holli Rosario 05/06/2011 - 50mg insomnia-- Please Deja Simon 05/06/2011 Tablets make sure no drug interaction with cymbalta- call MD if interaction Lunesta one po qhs prn 20tabs Brea Serra 05/06/2011 - 2mg Tablets insomnia Deja Avitia 08/16/2012 Cymbalta take one to two 60caps Holli Rosario 02/22/2011 - 30mg Caps capsules by mouth Deja Simon 03/25/2011 Part once daily as tolerated Gabapentin take 1-3 capsules 100caps Holli Rosario 01/18/2011 - 100mg po qhs and up to Deja Simon 08/16/2012 Capsules bid, or hot flashes/ insomnia Vitamin D-3 qd Holli Rosario 01/18/2011 - 1000Unit Deja Simon 05/29/2014 Tablets Amoxicillin/Clavulana 1 po bid for 10 20tabs 461.0 Shawnti R. 09/15/2010 - te Potassium days for ROBLES Lange 10/08/2010 875-125mg infection Tablets Adderall 2 po qam for add 6six Anujwalma R. 06/06/2010 - 20mg Tablets ROBLES Lange 06/11/2010 Xanax 1/2-1 po qhs and 30tabs Holli Rosario 04/06/2010 - 0.5mg Tablets up to bid prn Deja Simon 10/12/2011 anxiety Omeprazole 1 po qd On Empty 30tabs Holli Rosario 09/17/2009 - 20mg Tablets Stomach Deja Simon 12/22/2009 Citalopram 1 and 1/2 po qday 45tabs Holli Rosario 05/22/2009 - Hydrobromide Deja Simon 02/22/2011 40mg Tablets adderall Unknown - 10/20/2018 Amphetamine/Dextroamp 1 po qam as 30tabs Holli Rosario - hetamine directed Deja Simon 04/12/2012 20mg Tablets Propranolol HCL Unknown - 40mg 08/06/2013 Tablets Amphetamine/Dextroamp Unknown - hetamine 10/12/2011 20mg Tablets Propranolol HCL Unknown - 40mg 10/12/2011 Tablets Cyclobenzaprine HCL Unknown - 08/06/2013 10mg Tablets Omeprazole 1 by mouth every 90caps Holli Rosario - 20mg day for Deja Simon 06/22/[address] gastritis/ GERD Immunizations CPT Code Status Date Vaccine Lot # [id number] Given 05/16/2018 Influenza Virus Vaccine, Quadrivalent, 3 Yr > [id number] Quad, Preserv Free [id number] Given 05/19/2017 Influenza Virus Vaccine, Quadrivalent, 3 Yr > Quad, Preserv Free 21877 Given 02/19/2015 Zoster Vaccine [id number] Given 05/21/2014 Influenza Virus Vaccine, Quadrivalent, 3 Yr > Quad, Preserv Free 86916 Given 06/22/2011 Tdap (Adacel) [id number] 71273 Given 06/22/2011 Influenza Vaccine-Preservative Free 3 Yrs And [id number] Above 95802 Given 07/08/2004 DT (Adult) Vital Signs Date Vital Result Comment 12/12/2018 3:43pm Weight 121.00 lb Weight 54.886 kg BP Systolic 112 mmHg BP Diastolic 60 mmHg Heart Rate 86 /min Body Temperature 97.8 F Respiratory Rate 16 /min Height 64.5 inches 5'4.50" BMI (Body Mass Index) 20.4 kg/m2 O2 % BldC Oximetry 96 % 10/20/2018 11:58am Weight 121.00 lb Weight 54.886 kg BP Systolic 110 mmHg BP Diastolic 78 mmHg Heart Rate 80 /min Body Temperature 98.0 F Respiratory Rate 20 /min 09/26/2018 2:39pm Weight 118.12 lb Weight 53.581 kg BP Systolic 128 mmHg BP Diastolic 82 mmHg Heart Rate 82 /min Body Temperature 97.9 F Respiratory Rate 16 /min Height 65 inches 5'5" BMI (Body Mass Index) 19.7 kg/m2 O2 % BldC Oximetry 98 % 06/22/2018 2:35pm Weight 117.00 lb Weight 53.071 kg BP Systolic 134 mmHg BP Diastolic 82 mmHg Heart Rate 77 /min Body Temperature 97.6 F Respiratory Rate 16 /min O2 % BldC Oximetry 99 % 05/16/2018 4:34pm Weight 117.00 lb Weight 53.071 kg BP Systolic 124 mmHg BP Diastolic 80 mmHg Heart Rate 72 /min Body Temperature 98.0 F Respiratory Rate 16 /min Height 64.5 inches 5'4.50" BMI (Body Mass Index) 19.8 kg/m2 O2 % BldC Oximetry 96 % 12/26/2017 11:02am Weight 112.00 lb Weight 50.803 kg BP Systolic 128 mmHg BP Diastolic 82 mmHg Heart Rate 80 /min Body Temperature 97.3 F Respiratory Rate 16 /min O2 % BldC Oximetry 98 % 09/20/2017 4:34pm Weight 119.00 lb Weight 53.978 kg BP Systolic 100 mmHg BP Diastolic 74 mmHg Heart Rate 80 /min Body Temperature 96.7 F Respiratory Rate 14 /min Height 64.5 inches 5'4.50" BMI (Body Mass Index) 20.1 kg/m2 08/10/2017 10:29am Weight 120.00 lb Weight 54.432 kg BP Systolic 120 mmHg BP Diastolic 72 mmHg Heart Rate 68 /min Body Temperature 98.0 F Respiratory Rate 16 /min Height 64.5 inches 5'4.50" BMI (Body Mass Index) 20.3 kg/m2 O2 % BldC Oximetry 98 % 03/12/2017 9:08am Weight 125.00 lb Weight 56.700 kg BP Systolic 120 mmHg BP Diastolic 80 mmHg Heart Rate 60 /min Body Temperature 97.6 F Respiratory Rate 14 /min 11/26/2014 4:40pm Weight 116.00 lb Weight 52.618 kg BP Systolic 142 mmHg BP Diastolic 94 mmHg Heart Rate 76 /min Body Temperature 98.3 F 05/29/2014 3:17pm Weight 117.00 lb Weight 53.071 kg BP Systolic 126 mmHg BP Diastolic 84 mmHg Heart Rate 80 /min Height 64.5 inches 5'4.50" BMI (Body Mass Index) 19.8 kg/m2 05/07/2014 4:32pm Weight 120.00 lb Weight 54.432 kg BP Systolic 126 mmHg BP Diastolic 88 mmHg Heart Rate 88 /min Body Temperature 97.2 F 04/10/2014 11:45am Weight 125.00 lb Weight 56.700 kg BP Systolic 130 mmHg BP Diastolic 90 mmHg Heart Rate 74 /min Body Temperature 96.1 F O2 % BldC Oximetry 98 % 08/06/2013 10:18am Weight 125.00 lb Weight 56.700 kg BP Systolic 124 mmHg BP Diastolic 80 mmHg Heart Rate 72 /min Body Temperature 96.5 F 08/23/2012 3:26pm Weight 124.00 lb Weight 56.246 kg BP Systolic 132 mmHg BP Diastolic 80 mmHg Heart Rate 77 /min Body Temperature 97.7 F O2 % BldC Oximetry 98 % 12/22/2011 2:20pm Weight 123.00 lb Weight 55.793 kg BP Systolic 142 mmHg BP Diastolic 100 mmHg Heart Rate 84 /min Body Temperature 98.4 F 10/12/2011 5:32pm Weight 124.00 lb Weight 56.246 kg BP Systolic 120 mmHg BP Diastolic 70 mmHg Heart Rate 100 /min Body Temperature 99.6 F Respiratory Rate 20 /min 06/22/2011 1:46pm Weight 122.00 lb Weight 55.339 kg BP Systolic 128 mmHg BP Diastolic 80 mmHg Heart Rate 70 /min Height 64.75 inches 5'4.75" BMI (Body Mass Index) 20.5 kg/m2 O2 % BldC Oximetry 98 % 06/04/2011 9:32am Weight 123.00 lb Weight 55.793 kg BP Systolic 130 mmHg BP Diastolic 70 mmHg Heart Rate 74 /min Body Temperature 97.7 F O2 % BldC Oximetry 99 % 05/06/2011 11:29am Weight 120.00 lb Weight 54.432 kg BP Systolic 142 mmHg BP Diastolic 90 mmHg Heart Rate 76 /min 03/25/2011 11:46am Weight 120.00 lb Weight 54.432 kg BP Systolic 140 mmHg BP Diastolic 80 mmHg Heart Rate 80 /min Body Temperature 97.8 F 02/22/2011 2:36pm Weight 122.00 lb Weight 55.339 kg BP Systolic 120 mmHg BP Diastolic 70 mmHg Heart Rate 88 /min 02/09/2011 1:38pm Weight 123.00 lb Weight 55.793 kg BP Systolic 152 mmHg BP Diastolic 90 mmHg Heart Rate 80 /min 01/18/2011 9:26am Weight 122.00 lb Weight 55.339 kg BP Systolic 132 mmHg BP Diastolic 90 mmHg Heart Rate 80 /min Body Temperature 96.9 F 09/15/2010 2:26pm Weight 122.00 lb Weight 55.339 kg BP Systolic 120 mmHg BP Diastolic 80 mmHg Heart Rate 76 /min Body Temperature 97.2 F 07/14/2010 2:11pm Weight 118.00 lb Weight 53.525 kg BP Systolic 134 mmHg BP Diastolic 80 mmHg Heart Rate 84 /min Body Temperature 98.4 F 12/22/2009 11:19am Weight 120.00 lb Weight 54.432 kg BP Systolic 148 mmHg BP Diastolic 90 mmHg Heart Rate 80 /min 10/09/2009 1:48pm Weight 117.00 lb Weight 53.071 kg BP Systolic 118 mmHg BP Diastolic 78 mmHg Heart Rate 72 /min Body Temperature 98.1 F 09/17/2009 10:16am Weight 115.00 lb Weight 52.164 kg BP Systolic 112 mmHg BP Diastolic 76 mmHg Heart Rate 78 /min Height 65.5 inches 5'5.50" BMI (Body Mass Index) 18.8 kg/m2 Last Menstrual Period [id number] 05/22/2009 11:58am Weight 120.00 lb Weight 54.432 kg BP Systolic 120 mmHg BP Diastolic 72 mmHg Heart Rate 74 /min Height 65 inches 5'5" BMI (Body Mass Index) 20.0 kg/m2 Last Menstrual Period [id number] Results Test Date Facility Test Result H/L Range Note Laboratory [facility] Levetiracetam <2.0 g/ mL Abnormal 1 test finding [phone] (Keppra) Urine Drug [facility] Urine Presumptive Abnormal None 2 SCR ED & Pain 019 [phone] Amphetamine Posi <SEE Detect Clinic Screen NOTE> Urine Barbiturates Screen None Detected None Detect Urine Benzodiazepine Screen None Detected None Detect Urine Cannabinoids Screen Presumptive Posi <SEE NOTE> Abnormal None Detect 3 Urine Cocaine Screen None Detected None Detect Urine Opiates Screen None Detected None Detect Urine Phencyclidine Screen None Detected None Detect 4 Urinalysis Profile 12/05/2018 [facility] Urine Color Straw [phone] Urine Appearance Clear Urine Specific Murray 1.004 Low 1.010-1.030 Urine pH 7.0 N 5-9 Urine Urobilinogen Negative Negative Urine Ketones Trace Abnormal Negative Urine Protein Negative Negative Urine Leukocytes Negative Negative Urine Blood Negative Negative Urine Nitrite Negative Negative Urine Bilirubin Negative Negative Urine Glucose Negative Negative CBC Auto Diff 12/05/2018 [facility] White Blood 9.2 10^3/uL N 3.5-10.8 [phone] Count Red Blood Count 4.38 10^6/uL N 3.70-4.87 Hemoglobin 13.9 g/dL N 12.0-16.0 Hematocrit 42 % High 33-41 Mean Corpuscular Volume 95 fL N 80-97 Mean Corpuscular Hemoglobin 32 pg High 27-31 Mean Corpuscular HGB Conc 33 g/dL N 31-36 Red Cell Distribution Width 13 % N 10.5-15 Platelet Count 217 10^3/uL N 150-450 Mean Platelet Volume 7.9 fL N 7.4-10.4 Abs Neutrophils 7.0 10^3/uL N 1.5-7.7 Abs Lymphocytes 1.4 10^3/uL N 1.0-4.8 Abs Monocytes 0.7 10^3/uL N 0-0.8 Abs Eosinophils 0.1 10^3/uL N 0-0.6 Abs Basophils 0 10^3/uL N 0-0.2 Abs Nucleated RBC 0 10^3/uL Granulocyte % 76.0 % Lymphocyte % 14.7 % Monocyte % 7.4 % Eosinophil % 1.5 % Basophil % 0.4 % Nucleated Red Blood Cells % 0 Arterial Blood Gas 12/05/2018 [facility] PH Arterial 7.42 N 7.35-7.45 [phone] Pco2 Arterial 34 mmHg Low 35-45 Po2 Arterial 104 mmHg High 80-100 O2 Saturation Arterial 100.0 % High 94.0-98.0 Base Excess Arterial -1.7 mmol/L N -2.0-2.0 5 Hco3 Arterial 23.6 mmol/L N 19-31 Laboratory test 12/05/2018 [facility] Magnesium 2.1 mg/dL N 1.9-2.7 finding [phone] Creatine Kinase 97 U/L N 10-223 Troponin-I (TnI) 0.00 ng/mL <0.04 6 Acetaminophen < 15 g/mL 7 Alcohol < 10 mg/dL N <10 Salicylate < 2.50 mg/dL <30 TSH (Thyroid Stimulating Horm) 0.65 mcIU/mL N 0.34-5.60 Comp Metabolic Panel 12/05/2018 [facility] Sodium 137 mmol/L N 135-145 [phone] Potassium 3.9 mmol/L N 3.5-5.0 Chloride 104 mmol/L N 101-111 Co2 Carbon Dioxide 25 mmol/L N 22-32 Anion Gap 8 mmol/L N 2-11 Glucose 93 mg/dL N 70-100 Blood Urea Nitrogen 14 mg/dL N 6-24 Creatinine 0.95 mg/dL N 0.51-0.95 BUN/Creatinine Ratio 14.7 N 8-20 Calcium 9.2 mg/dL N 8.6-10.3 Total Protein 6.9 g/dL N 6.4-8.9 Albumin 4.6 g/dL N 3.2-5.2 Globulin 2.3 g/dL N 2-4 Albumin/Globulin Ratio 2.0 N 1-3 Total Bilirubin 0.60 mg/dL N 0.2-1.0 Alkaline Phosphatase 75 U/L N 34-104 Alt 24 U/L N 7-52 Ast 22 U/L N 13-39 Egfr Non- 60.2 >60 Egfr 72.9 >60 8 Laboratory test 12/05/2018 [facility] Lactic Acid 0.7 mmol/L N 0.5-2.0 9 finding [phone] Laboratory test 09/26/2018 [facility] Vitamin B12 > 1450 High 180-914 10 finding [phone] pg/mL CBC Auto Diff 09/26/2018 [facility] White Blood 6.0 10^3/uL N 3.5-10.8 [phone] Count Red Blood Count 4.36 10^6/uL N 4.00-5.40 Hemoglobin 13.7 g/dL N 12.0-16.0 Hematocrit 41 % N 35-47 Mean Corpuscular Volume 95 fL N 80-97 Mean Corpuscular Hemoglobin 32 pg High 27-31 Mean Corpuscular HGB Conc 33 g/dL N 31-36 Red Cell Distribution Width 13 % N 10.5-15 Platelet Count 259 10^3/uL N 150-450 Mean Platelet Volume 8.3 fL N 7.4-10.4 Abs Neutrophils 3.0 10^3/uL N 1.5-7.7 Abs Lymphocytes 2.1 10^3/uL N 1.0-4.8 Abs Monocytes 0.7 10^3/uL N 0-0.8 Abs Eosinophils 0.1 10^3/uL N 0-0.6 Abs Basophils 0 10^3/uL N 0-0.2 Abs Nucleated RBC 0 10^3/uL Granulocyte % 50.5 % Lymphocyte % 34.8 % Monocyte % 11.7 % Eosinophil % 2.3 % Basophil % 0.7 % Nucleated Red Blood Cells % 0 Comp Metabolic Panel 09/26/2018 [facility] Sodium 139 mmol/L N 135-145 [phone] Potassium 4.3 mmol/L N 3.5-5.0 Chloride 104 mmol/L N 101-111 Co2 Carbon Dioxide 28 mmol/L N 22-32 Anion Gap 7 mmol/L N 2-11 Glucose 84 mg/dL N 70-100 Blood Urea Nitrogen 13 mg/dL N 6-24 Creatinine 0.79 mg/dL N 0.51-0.95 BUN/Creatinine Ratio 16.5 N 8-20 Calcium 9.7 mg/dL N 8.6-10.3 Total Protein 7.2 g/dL N 6.4-8.9 Albumin 5.0 g/dL N 3.2-5.2 Globulin 2.2 g/dL N 2-4 Albumin/Globulin Ratio 2.3 N 1-3 Total Bilirubin 0.50 mg/dL N 0.2-1.0 Alkaline Phosphatase 85 U/L N 34-104 Alt 27 U/L N 7-52 Ast 27 U/L N 13-39 Egfr Non- 74.5 >60 Egfr 90.1 >60 11 Laboratory 09/26/2018 [facility] Vitamin D 47.2 ng/ mL N 20-50 12 test finding [phone] Total 25(Oh) Laboratory 09/26/2018 [facility] Hepatitis B Nonreactive Nonreactive 13 test finding [phone] Surface Ag Hepatitis B Core AB Total Negative Negative 14 Hepatitis B 09/26/2018 [facility] Hepatitis B Not Immune Abnormal Immune Sharon AB Titer [phone] Surface AB Hep B Surf AB Level < 3.10 mIU/mL >12 Urine DIP 05/16/2018 In House Lab Leukocytes ++ Neg ([phone] - Urine Nitrites neg Neg Urobilinogen norm Norm Total Protein, Urine 1.015 High Neg Urine pH 7 High 5-6 Urine Blood neg Neg Specific Murray 1.015 1.01-1.02 Urine Ketones neg Neg Urine Bilirubin neg Neg Urine Glucose norm Norm Urine Culture And 05/16/2018 [facility] Urine Culture SEE RESULT 15 Sensitivities [phone] BELOW Laboratory test 09/26/2017 [facility] Clotest SEE RESULT 16 finding [phone] BELOW Laboratory test 09/26/2017 [facility] Surgical SEE RESULT 17, 18 finding [phone] Pathology BELOW Laboratory test 09/12/2017 [facility] Inr/Protime 0.97 N 0.77 finding [phone] -1.0 2 Basic Metabolic 09/12/2017 [facility] Sodium 138 mmol /L N 133- Panel [phone] 145 Potassium 3.6 mmol/L N 3.5-5.0 Chloride 104 mmol/L N 101-111 Co2 Carbon Dioxide 27 mmol/L N 22-32 Anion Gap 7 mmol/L N 2-11 Glucose 89 mg/dL N 70-100 Blood Urea Nitrogen 12 mg/dL N 6-24 Creatinine 0.81 mg/dL N 0.51-0.95 BUN/Creatinine Ratio 14.8 N 8-20 Calcium 9.3 mg/dL N 8.6-10.3 Egfr Non- 72.6 >60 Egfr 93.4 >60 19 Protein 09/12/2017 [facility] Total 6.9 g/dL 6.3 - Electrophoresis [phone] Protein(Pep) 7.9 Albumin 3.8 g/dL 3.4-4.7 Alpha-1 Globulin 0.3 g/dL 0.1-0.3 Alpha-2 Globulin 1.1 g/dL Abnormal 0.6-1.0 Beta Globulin 0.9 g/dL 0.7-1.2 Gamma Globulin 0.9 g/dL 0.6-1.6 Albumin/Globulin Ratio 1.21 Impression See Comment 20 Laboratory test 09/12/2017 [facility] Nmo Igg Negative Negative 21 finding [phone] Stratify JCV Antibody SEE COMMENTS 22 Laboratory test 08/11/2017 [facility] Folic Acid > 20.00 >3.99 23 finding [phone] (Folate) ng/mL Homocysteine 6 mcmol/L 24 Hepatitis C Antibody Nonreactive Nonreactive 25 Lipid Profile 08/11/2017 [facility] Triglycerides 76 mg/dL 26 (Trig/Chol/HDL) [phone] Cholesterol 228 mg/dL 27 HDL Cholesterol 67.3 mg/dL 28 LDL Cholesterol 146 mg/dL 29 Laboratory test 08/10/2017 [facility] Cytology SEE RESULT 30 finding [phone] BELOW CBC Auto Diff 03/14/2017 [facility] White Blood 4.5 10^3/uL N 3.5-10 [phone] Count .8 Red Blood Count 3.89 10^6/uL Low 4.0-5.4 Hemoglobin 12.7 g/dL N 12.0-16.0 Hematocrit 39 % N 35-47 Mean Corpuscular Volume 99 fL High 80-97 Mean Corpuscular Hemoglobin 33 pg High 27-31 Mean Corpuscular HGB Conc 33 g/dL N 31-36 Red Cell Distribution Width 13 % N 10.5-15 Platelet Count 214 10^3/uL N 150-450 Mean Platelet Volume 8 um3 N 7.4-10.4 Abs Neutrophils 2.2 10^3/uL N 1.5-7.7 Abs Lymphocytes 1.6 10^3/uL N 1.0-4.8 Abs Monocytes 0.5 10^3/uL N 0-0.8 Abs Eosinophils 0.1 10^3/uL N 0-0.6 Abs Basophils 0.1 10^3/uL N 0-0.2 Abs Nucleated RBC 0 10^3/uL N Granulocyte % 48.6 % N 38-83 Lymphocyte % 36.1 % N 25-47 Monocyte % 11.2 % High 1-9 Eosinophil % 3.0 % N 0-6 Basophil % 1.1 % N 0-2 Nucleated Red Blood Cells % 0 N Comp Metabolic Panel 03/14/2017 [facility] Sodium 140 mmol/L N 133-145 [phone] Potassium 4.0 mmol/L N 3.5-5.0 Chloride 104 mmol/L N 101-111 Co2 Carbon Dioxide 30 mmol/L N 22-32 Anion Gap 6 mmol/L N 2-11 Glucose 94 mg/dL N 70-100 Blood Urea Nitrogen 13 mg/dL N 6-24 Creatinine 0.75 mg/dL N 0.51-0.95 BUN/Creatinine Ratio 17.3 N 8-20 Calcium 9.4 mg/dL N 8.6-10.3 Total Protein 6.6 g/dL N 6.4-8.9 Albumin 4.4 g/dL N 3.2-5.2 Globulin 2.2 g/dL N 2-4 Albumin/Globulin Ratio 2.0 N 1-3 Total Bilirubin 0.50 mg/dL N 0.2-1.0 Alkaline Phosphatase 67 U/L N 34-104 Alt 15 U/L N 7-52 Ast 20 U/L N 13-39 Egfr Non- 79.6 N >60 Egfr 102.4 N >60 31 Laboratory test 03/14/2017 [facility] TSH (Thyroid 0.91 N 0.34-5.60 finding [phone] Stimulating mcIU/mL Horm) Free T4 0.78 ng/dL N 0.61-1.12 Vitamin B12 743 pg/mL N 180-914 32 Lyme Western 03/14/2017 [facility] Lyme Disease Negative N Negative Blot [phone] IgG Ab WB Lyme Disease IgG Bands Present No bands detecte <SEE NOTE> kDa N 33 Lyme Disease IgM Ab WB Negative N Negative Lyme Disease IgM Bands Present No bands detecte <SEE NOTE> kDa N 34 Lyme Disease Interpretation See Comment N 35 Tick-Borne Panel 03/14/2017 [facility] Babesia Negative N Negative PCR Blood [phone] microti PCR Babesia ducani Negative N Negative Babesia divergens/Mo-1 Negative N Negative 36 Anaplasma phagocytophilum Negative N Negative Ehrlichia chaffeensis Negative N Negative Ehrlichia ewingii/canis Negative N Negative Ehrlichia muris-like Negative N Negative 37 B. miyamotoi PCR, B Negative N Negative 38 Laboratory test 03/14/2017 [facility] Vitamin D 43.1 ng/mL N 30-50 finding [phone] Total 25(Oh) Urinalysis Profile 10/11/2016 [facility] Urine Color Yellow N [phone] Urine Appearance Clear N Urine Specific Murray 1.005 Low 1.010-1.030 Urine pH 6.0 N 5-9 Urine Urobilinogen Negative N Negative Urine Ketones Negative N Negative Urine Protein Negative N Negative Urine Leukocytes 3+ Abnormal Negative Urine Blood 1+ Abnormal Negative Urine Nitrite Negative N Negative Urine Bilirubin Negative N Negative Urine Glucose Negative N Negative Urine White Blood Cell 2+(11-20/hpf) Abnormal Absent Urine Red Blood Cell 1+(3-5/hpf) Abnormal Absent Urine Bacteria 2+ Abnormal Absent Urine Squamous Epithelial Cell Present Abnormal Absent Laboratory test 10/11/2016 [facility] Urine Culture SEE RESULT 39 finding [phone] BELOW Lipid Profile 05/31/2014 [facility] Triglycerides 50 mg/dL N 40 (Trig/Chol/HDL) [phone] Cholesterol 239 mg/dL N 41 HDL Cholesterol 85.3 mg/dL N 42 LDL Cholesterol 144 mg/dL N 43 Laboratory test 05/31/2014 [facility] Vitamin B12 392 pg/mL N 180-914 44 finding [phone] TSH (Thyroid Stimulating Horm) 0.79 IU/mL N 0.34-5.60 Free T4 0.76 ng/mL N 0.61-1.12 HPV High 05/29/2014 [facility] Human Papillomavirus See Comment N 45 Risk [phone] Source HPV High Risk Type 16, PCR Negative N Negative HPV High Risk Type 18, PCR Negative N Negative HPV Other Risk types Negative N Negative 46 Laboratory test 05/29/2014 [facility] Cytology RUN DATE: 47 finding [phone] 05/30/ <SEE NOTE> Urine DIP 05/29/2014 In House Lab Specific 1.02 1.01-1 (607)- - Murray .02 Urine pH 6 5-6 Leukocytes ++ Neg Urine Nitrites NEG Neg Total Protein, Urine TRACE Neg Urine Glucose NORM Norm Urine Ketones NEG Neg Urobilinogen NORM Norm Urine Bilirubin NEG Neg Urine Blood NEG Neg Comp Metabolic Panel 04/10/2014 [facility] Sodium 138 mmol/L N 133-145 [phone] Potassium 3.7 mmol/L N 3.7-5.6 Chloride 104 mmol/L N 101-111 Co2 Carbon Dioxide 28 mmol/L N 22-32 Anion Gap 6 mmol/L N 2-11 Glucose 86 mg/dL N 70-100 Blood Urea Nitrogen 9 mg/dL N 6-24 Creatinine 0.81 mg/dL N 0.51-0.95 BUN/Creatinine Ratio 11.1 N 8-20 Calcium 9.3 mg/dL N 8.6-10.3 Total Protein 6.8 g/dL N 6.4-8.9 Albumin 4.5 g/dL N 3.2-5.2 Globulin 2.3 g/dL N 2-4 Albumin/Globulin Ratio 2.0 N 1-3 Total Bilirubin 0.70 mg/dL N 0.2-1.0 Alkaline Phosphatase 61 U/L N 34-104 Alt 16 U/L N 7-52 Ast 20 U/L N 13-39 Egfr Non- 73.7 N >60 Egfr 94.8 N >60 48 CBC Auto Diff 04/10/2014 [facility] White Blood 5.1 10^3/uL N 4.8-10.8 [phone] Count Red Blood Count 4.00 10^6/uL N 4.0-5.4 Hemoglobin 13.0 g/dL N 12.0-16.0 Hematocrit 38 % N 35-47 Mean Corpuscular Volume 96 fL N 80-97 Mean Corpuscular Hemoglobin 33 pg High 27-31 Mean Corpuscular HGB Conc 34 g/dL N 31-36 Red Cell Distribution Width 13 % N 10.5-15 Platelet Count 212 10^3/uL N 150-450 Mean Platelet Volume 7 um3 Low 7.4-10.4 Abs Neutrophils 2.8 10^3/uL N 1.5-7.7 Abs Lymphocytes 1.6 10^3/uL N 1.0-4.8 Abs Monocytes 0.5 10^3/uL N 0-0.8 Abs Eosinophils 0.1 10^3/uL N 0-0.6 Abs Basophils 0 10^3/uL N 0-0.2 Abs Nucleated RBC 0 10^3/uL N Granulocyte % 56.0 % N 38-83 Lymphocyte % 32.4 % N 25-47 Monocyte % 9.8 % High 1-9 Eosinophil % 1.3 % N 0-6 Basophil % 0.5 % N 0-2 Nucleated Red Blood Cells % 0 N Laboratory test 04/10/2014 [facility] Lipase 12 U/L N 11.0-82.0 finding [phone] Amylase 23 U/L Low 29-103 Urine DIP 08/06/2013 In House Lab Leukocytes 2+ High Neg (607)- - Urine Nitrites POS Neg Urine pH 8 High 5-6 Total Protein, Urine TRACE Neg Urine Glucose NORM Norm Urine Ketones NEG Neg Urobilinogen NORM Norm Urine Bilirubin NEG Neg Urine Blood 250 High Neg Specific Murray 1.010 1.01-1.02 Urine Culture And 08/06/2013 [facility] Urine Culture (SEE NOTE) 49 Sensitivities [phone] Urine DIP 06/22/2011 In House Lab Leukocytes ++ Neg (607)- - Urine Nitrites NEG Neg Urine pH 5-6 5-6 Total Protein, Urine NEG Neg Urine Glucose NORM Norm Urine Ketones NEG Neg Urobilinogen NORM Norm Urine Bilirubin NEG Neg Urine Blood NEG Neg Specific Murray N/A Low 1.01-1.02 Laboratory test 06/22/2011 [facility] Cytology ------ 50 finding [phone] <SEE NOTE> Laboratory test 02/01/2011 [facility] TSH 1.510 uIU/ml 0.35 finding [phone] (Thyrotropin 0-5. ) 500 CBC 02/01/2011 [facility] WBC 7.7 x10E3/uL 4.3- [phone] 10.9 RBC 4.14 x10E6/uL 3.80-5.30 Hemoglobin 12.9 g/dL 11.8-15.8 Hematocrit 39.3 % 35.0-47.0 MCV 94.9 fl 82.0-98.0 MCH 31.2 pg 27.5-33.5 MCHC 32.8 g/dL 32.0-36.0 RDW 13.5 % 11.5-14.5 Platelet Count 232 x10E3/uL 130-400 MPV 10.3 fl 6.5-10.5 Segmented Neutrophils 59.4 % 44.0-74.0 Lymphocytes 26.9 % 15.0-45.0 Monocytes 11.2 % 2.0-13.0 Eosinophils 2.1 % 0.0-6.0 Basophils 0.4 % 0.0-2.0 Neutrophil Absolute 4.6 x10E3/uL 1.4-7.0 Lymphocytes Absolute 2.1 x10E3/uL 1.0-3.4 Monocyte Absolute 0.9 x10E3/uL 0.2-1.0 Eosinophil Absolute 0.2 x10E3/uL 0.0-0.5 Basophil Absolute 0.0 x10E3/uL 0.0-0.2 Comprehensive Metabolic 02/01/2011 [facility] Glucose 87 mg /dL 70-100 [phone] BUN 16 mg/dL 4-18 Creatinine, Serum 0.80 mg/dL 0.50-1.10 Sodium 138 mmol/L 136-146 Potassium 3.9 mmol/L 3.5-5.3 Chloride 104 mmol/L 98-110 Carbon Dioxide 32 mmol/L 20-32 Albumin 4.9 g/dL High 3.5-4.7 Protein, Total 7.2 g/dL 6.4-8.3 Calcium 10.2 mg/dL 8.4-10.4 Alkaline Phosphatase 75 U/L 10-118 Sgot (Ast) 38 U/L 3-40 SGPT (Alt) 32 U/L 7-50 Bilirubin, Total 0.70 mg/dL 0.30-1.20 Laboratory test 02/01/2011 [facility] Vitamin B-12 604 pg/ mL 51 finding [phone] FSH 42.8 mIU/ml 52 Vitamin D, 25 Oh 42.3 ng/mL 32.0-100.0 53 Egfr (Calculated) 02/01/2011 [facility] Estimated GFR ( CALCULATED) [phone] Egfr >60 54 Egfr, -Cook Islander >60 55 Comp Metabolic Panel 09/23/2009 [facility] Sodium 136 mmol/L 135-145 [phone] Potassium 4.4 mmol/L 3.5-5.0 Chloride 102 mmol/L 101-111 Co2 (Carbon Dioxide) 28.0 mmol/L 22-32 Anion Gap 6.0 mmol/L 2-11 56 Glucose 49 mg/dL Low 70-100 57 BUN 10 mg/dL 6-24 Creatinine 0.70 mg/dL 0.50-1.40 One Over Creatinine 1.40 BUN/Creatinine Ratio 14.3 8-20 Calcium 9.2 mg/dL 8.1-9.9 58 Total Protein 6.5 GM/DL 6.2-8.1 Albumin 4.3 GM/DL 3.6-5.4 Globulin 2.2 GM/DL 2-4 Albumin/Globulin Ratio 2.0 1-3 Bilirubin Total 1.0 mg/dL 0.4-1.5 59 Alkaline Phosphatase 54 U/L 30-110 Alt (SGPT) 15 U/L 14-54 Ast (Sgot) 21 U/L 12-42 eGFR Non- 94.1 > 60 eGFR 113.9 > 60 60 Laboratory test 09/23/2009 [facility] TSH 1.35 MIU/ ML 0.34-5.60 finding [phone] Thyroxine Free 0.60 NG/ML Low 0.61-1.24 61 CBC With 09/23/2009 [facility] White Blood 5.9 CUMM 4.8-10.8 Electronic Diff [phone] Count Red Cell Count 4.17 CUMM Low 4.2-5.4 Hemoglobin 13.7 g/dL 12.0-16.0 Hematocrit 40 % 35-47 Mean Corpuscular Volume 96 um3 79-97 Mean Corpuscular Hemoglob 33 pg High 27-31 Mean Corpuscular HGB Cone 34 g/dL 32-36 Redcell Distribution WDTH 13 % 10.5-15 Platelet Count 232 CUMM 150-450 Mean Platelet Volume 7.5 um3 7.4-10.4 Gran % 62.2 % 38-83 Lymph % 26.1 % 25-47 Mononuclear % 9.7 % High 1-9 Eosinophil % 1.6 % 0-6 Basophil % 0.4 % 0-2 Abs Lymphs 1.5 1.0-4.8 Abs Mononuclear 0.6 0-0.8 Absolute Neutrophil Count 3.7 1.5-7.7 Abs Eosinophils 0.1 0-0.6 Abs Basophils 0 0-0.2 Laboratory test 09/17/2009 [facility] Cytology ------ <SEE 62 finding [phone] NOTE> Laboratory test 05/22/2009 [facility] TSH 0.74 MIU/ ML 0.34- finding [phone] 5.60 Thyroxine Free 0.68 NG/ML 0.61-1.24 63 Comp Metabolic Panel 05/22/2009 [facility] Sodium 139 mmol/L 135-145 [phone] Potassium 3.8 mmol/L 3.5-5.0 Chloride 105 mmol/L 101-111 Co2 (Carbon Dioxide) 27.0 mmol/L 22-32 Anion Gap 7.0 mmol/L 2-11 64 Glucose 79 mg/dL 70-100 65 BUN 9 mg/dL 6-24 Creatinine 0.70 mg/dL 0.50-1.40 One Over Creatinine 1.40 BUN/Creatinine Ratio 12.9 8-20 Calcium 9.2 mg/dL 8.1-9.9 66 Total Protein 6.1 GM/DL Low 6.2-8.1 Albumin 4.3 GM/DL 3.6-5.4 Globulin 1.8 GM/DL Low 2-4 Albumin/Globulin Ratio 2.4 1-3 Bilirubin Total 0.7 mg/dL 0.4-1.5 67 Alkaline Phosphatase 57 U/L 30-110 Alt (SGPT) 14 U/L 14-54 Ast (Sgot) 19 U/L 12-42 eGFR Non- 94.5 > 60 eGFR 114.4 > 60 68 CBC With 05/22/2009 [facility] White Blood 5.3 CUMM 4.8-10.8 Electronic Diff [phone] Count Red Cell Count 3.96 CUMM Low 4.2-5.4 Hemoglobin 12.7 g/dL 12.0-16.0 Hematocrit 39 % 35-47 Mean Corpuscular Volume 98 um3 High 79-97 Mean Corpuscular Hemoglob 32 pg High 27-31 Mean Corpuscular HGB Cone 33 g/dL 32-36 Redcell Distribution WDTH 14 % 10.5-15 Platelet Count 243 CUMM 150-450 Mean Platelet Volume 7.8 um3 7.4-10.4 Gran % 59.9 % 38-83 Lymph % 28.9 % 25-47 Mononuclear % 9.0 % 1-9 Eosinophil % 1.8 % 0-6 Basophil % 0.4 % 0-2 Abs Lymphs 1.5 1.0-4.8 Abs Mononuclear 0.5 0-0.8 Absolute Neutrophil Count 3.2 1.5-7.7 Abs Eosinophils 0.1 0-0.6 Abs Basophils 0 0-0.2 Laboratory test 05/22/2009 [facility] Vitamin B12 350 pg/mL 180-914 finding [phone] Vitamin D.25 05/22/2009 [facility] 25-Hydroxy <4.0 ng /mL () Hydroxy [phone] Vitamin D2 25-Hydroxy Vitamin D3 41 ng/mL () 25-Hydroxy Vitamin D Total 41 ng/mL () 69 Laboratory test 05/22/2009 [facility] Testosterone Total 22.9 ng/dL 10 finding [phone] 1 REFERENCE VALUE 12.0 - 46.0 ADDITIONAL INFORMATION This test was developed and its performance characteristics determined by [facility] in a manner consistent with CLIA requirements. This test has not been cleared or approved by the U.S. Food and Drug Administration. Test Performed by: [facility] - [place] [id number] [place] [id number] 2 Presumptive Positive Presumptive positive results are unconfirmed. 3 Presumptive Positive Presumptive positive results are unconfirmed. 4 The urine specimen was tested at the listed cutoffs: Drug class test level (ng/mL) Amphetamines 500 Barbiturates 200 Benzodiazepine metabolites 200 Cocaine metabolites 150 Cannabinoids 50 Opiates 300 Pcp 25 Specimen was received without chain of custody. Results should be used for medical purposes only. 5 Reference ranges based on room air. 6 Troponin-I testing on Plasma Separator Tubes (PST) has a known false positive rate of 0.20-0.40%. All positive troponins reflex immediately to secondary confirmatory testing. Using the [employer] Access Immunoassay systems, the 99th percentile upper reference limit was demonstrated to be < 0.03 ng/mL. 7 Therapeutic concentration: <50 ug/mL Toxic concentration: >120 ug/mL 8 Because ethnic data is not always readily available, this report includes an eGFR for both -Americans and non- Americans. The National Kidney Disease Education Program (NKDEP) does not endorse the use of the MDRD equation for patients that are not between the ages of 18 and 70, are , have extremes of body size, muscle mass, or nutritional status, or are non- or non-. According to the National Kidney Foundation, irrespective of diagnosis, the stage of the disease is based on the level of kidney function: Stage Description GFR(mL/min/1.73 m(2)) 1 Kidney damage with normal or decreased GFR 90 2 Kidney damage with mild decrease in GFR 60-89 3 Moderate decrease in GFR 30-59 4 Severe decrease in GFR 15-29 5 Kidney failure <15 (or dialysis) 9 [facility] Severe Sepsis and Septic Shock Management Bundle Measure requires all lactic acids initially measuring >2.0 mmol/L be repeated. 10 Normal Range 180 to 914 Indeterminate Range 145 to 180 Deficient Range <145 11 Because ethnic data is not always readily available, this report includes an eGFR for both -Americans and non- Americans. The National Kidney Disease Education Program (NKDEP) does not endorse the use of the MDRD equation for patients that are not between the ages of 18 and 70, are , have extremes of body size, muscle mass, or nutritional status, or are non- or non-. According to the National Kidney Foundation, irrespective of diagnosis, the stage of the disease is based on the level of kidney function: Stage Description GFR(mL/min/1.73 m(2)) 1 Kidney damage with normal or decreased GFR 90 2 Kidney damage with mild decrease in GFR 60-89 3 Moderate decrease in GFR 30-59 4 Severe decrease in GFR 15-29 5 Kidney failure <15 (or dialysis) 12 [id number] 14 Test Performed by: [facility] [address] [place] [address] 15 SEE RESULT BELOW Name: KATHY SHELTON : [address]: Holli Simon MD Acct: [id number] Unit: [id number] AGE: 57 Location: [facility] Re05/16/18 SEX: F Status: REG REF SPEC: [id number] ORACIO: 05/16/[address]: Holli Simon MD REQ: [id number] RECD: 05/17/18 STATUS: COMP _ SOURCE: URINE SPDESC: ORDERED: Urine Culture COMMENTS: [id number] Urine Source: Random Procedure Result Reported Site Urine Culture Final 05/18/18- 1312 ML No Growth (<1,000 CFU/mL) * ML - Main Lab . END OF REPORT DEPARTMENT OF PATHOLOGY, [address] [place] [address] Loi Avery M.D. Director [facility] # [id number] 16 SEE RESULT BELOW Name: KATHY SHELTON Nanette : [address]: Shira Lambert DO Acct: [id number] Unit: [id number] AGE: 57 Location: [facility] Re09/26/17 SEX: F Status: DEP REF SPEC: [id number] ORACIO: 09/26/17-[address] [facility] [address]: Shira Lambert DO REQ: [id number] RECD: 09/26/17 STATUS: JAY RIZO DR: Jean Carlos Simon MD _ SOURCE: GAS ANTRUM SPDESC: ORDERED: Clotest Procedure Result Reported Site Clotest Final 09/27/17- 811 ML Clotest Negative * ML - [facility] ([facility]) . END OF REPORT * ML=Testing performed at Main Lab DEPARTMENT OF PATHOLOGY, [address] [place] [address] Loi Avery M.D. Director [facility] # [id number] 17 [id number] SEE RESULT BELOW Name: KATHY SHELTON : [address]: Shira Lambert DO Acct: [id number] Unit: [id number] AGE: 57 Location: [facility] Re09/26/17 SEX: F Status: DEP REF SPEC: [id number] ORACIO: 09/26/17-[address] [facility] [address]: Shira Lambert DO REQ: [id number] RECD: 09/26/17160 STATUS: NIMA RIZO DR: Holli Simon MD _ ORDERED: LEVEL 4/3 COMMENTS: [id number] FINAL DIAGNOSIS 1. Duodenum, biopsy: -- Benign small intestinal mucosa with no significant pathologic abnormalities. -- No evidence of villous blunting or increased intraepithelial lymphocytes. 2. Stomach, antrum and body, biopsy: -- Body-type gastric mucosa with minimal superficial chronic gastritis. -- No evidence of Helicobacter organisms. 3. Gastroesophageal junction, biopsy: -- Squamous and columnar mucosa with chronic inflammation. -- Intestinal metaplasia is absent. -- Dysplasia is absent. CLINICAL HISTORY 57 year old female with nausea and cannabis use for nausea POST-OPERATIVE DIAGNOSIS Normal duodenum to second portion; mild gastritis of antrum and body with biopsy and CLOtest; irregular gastroesophageal junction at 39 cm with biopsy; normal mid and proximal esophagus. Conclusions/Plan: Follow-up pathology GROSS DESCRIPTION 1. The specimen is received in formalin labeled, Duodenal Biopsy, and consists of three speckled iglesias-pink irregular to polypoid soft tissue fragments ranging from 0.2 x 0.2 x 0.1 cm to 0.6 x 0.3 x 0.2 cm, which are entirely submitted in one cassette. 2. The specimen is received in formalin labeled, Biopsy Gastric Antrum and Body, and consists of two iglesias red irregular to polypoid soft tissue fragments measuring 0.4 x 0.2 x CONTINUED ON NEXT PAGE * ML=Testing performed at Main Lab DEPARTMENT OF PATHOLOGY, [address] [place] [address] Loi Avery M.D. Director [facility] # [id number] RUN DATE: 09/27/17 [facility] LIVE PAGE 2 Patient: KATHY SHELTON [id number] (Continued) GROSS DESCRIPTION (Continued) GROSS DESCRIPTION (Continued) 0.2 cm and 0.5 x 0.3 x 0.1 cm, which are entirely submitted in one cassette. 3. The specimen is received in formalin labeled, [facility], and consists of two translucent white irregular soft tissue fragments measuring 0.4 x 0.2 x 0.1 cm and 0.6 by up to 0.3 x 0.1 m, which are entirely submitted in one cassette. Signed (signature on file) Gisele Dillard MD 1134 END OF REPORT * ML=Testing performed at Main Lab DEPARTMENT OF PATHOLOGY, [address] [place] [address] Loi Avery M.D. Director [facility] # [id number] 19 Because ethnic data is not always readily available, this report includes an eGFR for both -Americans and non- Americans. The National Kidney Disease Education Program (NKDEP) does not endorse the use of the MDRD equation for patients that are not between the ages of 18 and 70, are , have extremes of body size, muscle mass, or nutritional status, or are non- or non-. According to the National Kidney Foundation, irrespective of diagnosis, the stage of the disease is based on the level of kidney function: Stage Description GFR(mL/min/1.73 m(2)) 1 Kidney damage with normal or decreased GFR 90 2 Kidney damage with mild decrease in GFR 60-89 3 Moderate decrease in GFR 30-59 4 Severe decrease in GFR 15-29 5 Kidney failure <15 (or dialysis) 20 RESULT: No apparent monoclonal protein on serum electrophoresis. Test Performed by: [place] [address] 21 Recommend repeat testing in 6 months if clinical suspicion is high. Negative result can occur in the setting of immunosuppression. ADDITIONAL INFORMATION This test was developed and its performance characteristics determined by [facility] in a manner consistent with CLIA requirements. This test has not been cleared or approved by the U.S. Food and Drug Administration. Test Performed by: [place] [id number] TEST PROCEDURE TEST RESULTS STRATIFY JCV(TM) AB WITH REFLEX TO INHIBITION ASSAY JCV Antibody FINAL RESULT: POSITIVE INTERPRETATION: Indeterminate:Low level reactivity detected, see Inhibition Assay result to follow for the final result. Positive: Antibodies to LEELEE virus (JCV) detected indicating the patient has been exposed to JCV at an undetermined time. Negative: Antibodies to JCV not detected. The STRATIFY JCV Antibody Test is an enzyme-linked immunoabsorbent assay (STEFANIE) designed to detect JCV antibodies to help identify individuals who have been exposed to the virus. Samples with low level reactivity in the detection assay are retested in a confirmation (inhibition) assay to confirm presence or absence of JCV-specific antibodies. Test performed at: [facility] [address] [place] [address] Director: Kevin Rhodes MD 23 FASTING 10 HOUR 24 REFERENCE VALUE <=13 (Fasting) ADDITIONAL INFORMATION This test was developed and its performance characteristics determined by [facility] in a manner consistent with CLIA requirements. This test has not been cleared or approved by the U.S. Food and Drug Administration. Test Performed by: [address] [id number] 25 FASTING 10 HOUR 26 Desirable: <150 Borderline High: 150-199 High: 200-499 Very High: >500 27 Desirable: <200 Borderline High: 200-239 High: >239 28 Low: <40 Desirable: 40-60 High: >60 29 Desirable: <100 Near Optimal: 100-129 Borderline High: 130-159 High: 160-189 Very High: >189 30 SEE RESULT BELOW Name: KATHY SHELTON : [address]: Holli Simon MD Acct: [id number] Unit: [id number] AGE: 57 Location: [facility] Re08/10/17 SEX: F Status: REG REF SPEC: [id number] ORACIO: 08/10/17-[address] [facility] [address]: Holli Simon MD REQ: [id number] RECD: 08/10/17 STATUS: SOUT _ ORDERED: TP IMAGE ANAL, HPV/Thin Prep, HPV 16/18 GENE COMMENTS: [id number] Negative for Intraepithelial lesion or Malignancy A. Ectocervical/Endocervical Specimen Adequacy: Satisfactory of evaluation Transformation zone component identified Scanty epithelial component Patient Information: HPV: High risk HPV RNA testing regardless of pap results. HPV 16/18 Genotype Reflex Actual Specimen Date: 08/10/17 Other Pertinent History: No History Given Date Time Test Result Flag (u) Normal Range 08/10/17 1158 @ HPV RNA RFLX GE Negative Negative @ @ The high-risk HPV types detected by the assay include: 16, @ 18, 31, 33, 35, 39, 45, 51, 52, 56, 58, 59, 66, and 68. Signed (signature on file) CAMELIA Post (ASCP) 08/11 1505 This Pap test was evaluated with the assistance of the [employer]smetechPrep Test Imaging System. Due to cytologic findings at the merit system director microscope, comprehensive manual rescreening by a Mercerizer Machine Operator may be required. The Pap Smear is a screening test designed to aid in the detection of premalignant and malignant conditions of the uterine cervix. It is not a diagnostic procedure and should not be used as the sole means of detecting cervical cancer. Both false- positive and false- negative reports do occur. Depending on your risk status, a Pap smear should be obtained and evaluated every 1-3 years. END OF REPORT * ML=Testing performed at Main Lab DEPARTMENT OF PATHOLOGY, [address] [place] [address] Loi Avery M[address]D. Director [facility] # [id number] 31 Because ethnic data is not always readily available, this report includes an eGFR for both -Americans and non- Americans. The National Kidney Disease Education Program (NKDEP) does not endorse the use of the MDRD equation for patients that are not between the ages of 18 and 70, are , have extremes of body size, muscle mass, or nutritional status, or are non- or non-. According to the National Kidney Foundation, irrespective of diagnosis, the stage of the disease is based on the level of kidney function: Stage Description GFR(mL/min/1.73 m(2)) 1 Kidney damage with normal or decreased GFR 90 2 Kidney damage with mild decrease in GFR 60-89 3 Moderate decrease in GFR 30-59 4 Severe decrease in GFR 15-29 5 Kidney failure <15 (or dialysis) 32 Normal Range 180 to 914 Indeterminate Range 145 to 180 Deficient Range <145 33 No bands detected 34 No bands detected 35 Specific serologic response to B. burgdorferi infection is not detected, but cannot rule out early infection during which low or undetectable antibody levels to B. burgdorferi may be present. If clinically indicated, a new serum specimen should be submitted in 7-14 days. ADDITIONAL INFORMATION CDC criteria require >=5 bands for IgG or >=2 bands for IgM for the Immunoblot to be considered positive. Bands (e.g.,p41) may be detected in patients without Lyme disease, and patterns not meeting the CDC criteria should be interpreted with caution. Immunoblot should be ordered only on specimens that are positive or equivocal by a FDA-licensed Lyme disease antibody screening test (e.g., EIA). Test Performed by: [facility] - [address] [address] 36 ADDITIONAL INFORMATION This test was developed and its performance characteristics determined by [facility] in a manner consistent with CLIA requirements. This test has not been cleared or approved by the U.S. Food and Drug Administration. 37 ADDITIONAL INFORMATION This test was developed and its performance characteristics determined by [facility] in a manner consistent with CLIA requirements. This test has not been cleared or approved by the U.S. Food and Drug Administration. 38 ADDITIONAL INFORMATION This test was developed and its performance characteristics determined by [facility] in a manner consistent with CLIA requirements. This test has not been cleared or approved by the U.S. Food and Drug Administration. Test Performed by: [facility] - [address] [address] 39 SEE RESULT BELOW Name: KATHY SHELTON : [address]: Holli Simon MD Acct: [id number] Unit: [id number] AGE: 56 Location: LAB Re10/11/16 SEX: F Status: REG REF SPEC: [id number] ORACIO: 10/11/16-[address]: Holli Simon MD REQ: [id number] RECD: 10/11/16 STATUS: COMP _ SOURCE: URINE SPDESC: ORDERED: Urine Culture Urine Source: Clean Catch Procedure Result Reported Site Urine Culture Final 10/13/16- 828 ML Organism 1 ESCHERICHIA COLI [place] Count 25-50,000 (Moderate) CFU/ML Organism 2 NORMAL ROB [place] Count 10-25,000 (Moderate) CFU/ML 1. ESCHERICHIA COLI M.I.C. RX --------- ------ Ampicillin >=32 R Cefazolin <=4 S Cefepime <=1 S Ceftriaxone <=1 S Ciprofloxacin <=0.25 S Gentamicin <=1 S Levofloxacin <=0.12 S Meropenem <=0.25 S Nitrofurantoin <=16 S Tetracycline <=1 S Pipercillin/Tazobactam <=4 S Trimethoprim/Sulfamethoxazole <=20 S Amoxicillin/Clavulanic Acid 8 S Aztreonam <=1 S Contact the Microbiology Department for any additional antibiotic reporting. * ML - MAIN LAB ([facility]) . END OF REPORT * ML=Testing performed at Main Lab DEPARTMENT OF PATHOLOGY, [address] [place] [address] Loi Avery M.D. Director [facility] # [id number] 40 Desirable <150 Borderline high 150-199 High 200-499 Very High >500 41 Desirable <200 Borderline high 200-239 High >239 42 Low <40 Desirable: 40-60 High: >60 43 Desirable <100 Near Optimal 100-129 Borderline high 130-159 High 160-189 Very High >189 44 Normal Range 180 to 914 Indeterminate Range 145 to 180 Deficient Range <145 45 RESULT: Ectocervical/Endocervical 46 The following Other High Risk HPV types were not detected: 31, 33, 35, 39, 45, 51, 52, 56, 58, 59, 66, and 68 Test Performed by: [address] [address] Linux System Engineer: Nathanael Ellington M.D. 47 RUN DATE: 05/30/14 [facility] LAB LIVE PAGE 1 RUN TIME: [address] [place] [id number] Specimen Inquiry Name: KATHY SHELTON : [address]: Holli Simon MD Acct: [id number] Unit: [id number] AGE: 53 Location: [facility] Re05/29/14 SEX: F Status: REG REF SPEC: [id number] ORACIO: 05/29/14-[address]: Holli Simon MD REQ: [id number] RECD: 05/29/14 STATUS: SOUT _ ORDERED: IMAGE ANALYSIS, HPV/Thin Prep FINAL DIAGNOSIS Negative for Intraepithelial lesion or Malignancy COMMENTS: Specimen sent to [facility] in [place], [place] on 05/30/14 by [id number] at 1114. Results will be reported separately. A. Ectocervical/Endocervical Specimen Adequacy: Satisfactory of evaluation Transformation zone component identified Patient Information: HPV: High risk HPV DNA testing regardless of pap results. Actual Specimen Date: 05/29/14 ?: N Post Menopausal?: Y Hysterectomy?: N Signed (signature on file) CAMELIA Simons (ASCP) 05/30/14 1118 This Pap test was evaluated with the assistance of the ThinPrep Test Imaging System. Due to cytologic findings at the merit system director microscope, comprehensive manual rescreening by a Mercerizer Machine Operator may be required. The Pap Smear is a screening test designed to aid in the detection of premalignant and malignant conditions of the uterine cervix. It is not a diagnostic procedure and should not be used as the sole means of detecting cervical cancer. Both false- positive and false- negative reports do occur. Depending on your risk status, a Pap smear shoudl be obtained and evaluated every 1-3 years. END OF REPORT * ML=Testing performed at Main Lab DEPARTMENT OF PATHOLOGY, [facility] [employer] [place], [place] [address] Loi Avery M.D. Director [facility] # [id number] 48 Because ethnic data is not always readily available, this report includes an eGFR for both -Americans and non- Americans. The National Kidney Disease Education Program (NKDEP) does not endorse the use of the MDRD equation for patients that are not between the ages of 18 and 70, are , have extremes of body size, muscle mass, or nutritional status, or are non- or non-. According to the National Kidney Foundation, irrespective of diagnosis, the stage of the disease is based on the level of kidney function: Stage Description GFR(mL/min/1.73 m(2)) 1 Kidney damage with normal or decreased GFR 90 2 Kidney damage with mild decrease in GFR 60-89 3 Moderate decrease in GFR 30-59 4 Severe decrease in GFR 15-29 5 Kidney failure <15 (or dialysis) 49 RUN DATE: 08/08/13 [facility] LAB LIVE PAGE 1 RUN TIME: 1301 [facility] [employer] [place], [place] [address] Specimen Inquiry Name: KATHY SHELTON : [address]: Holli Simon MD Acct: [id number] Unit: [id number] AGE: 53 Location: [facility] Re08/06/13 SEX: F Status: REG REF SPEC: [id number] ORACIO: 08/06/13-[address]: Holli Simon MD REQ: [id number] RECD: 08/06/13 STATUS: COMP _ SOURCE: URINE SPDESC: ORDERED: Urine Culture QUERIES: Medent Number [id number] Procedure Result Verified Site Urine Culture Final 08/08/13- 1301 ML No Growth Day 2 (<1,000 CFU/mL) END OF REPORT * ML=Testing performed at Main Lab DEPARTMENT OF PATHOLOGY, [address] [place] [address] Loi Avery M.D. [facility] Permit #[id number] ---- RUN DATE: 06/23/11 [facility] NMI LIVE PAGE 1 RUN TIME: 1201 Specimen Inquiry RUN USER: INTERFACE -- Name: KATHY SHELTON Nanette Status: REG REF Re06/22/11 Age/Sex: 50/F Unit#: [id number] Location: [facility] Kay : 58 -- Specimen: [id number] NIMA Spec Date: 06/22/[address]: Holli buchanan MD Spec Type: CYTOLOGY Received: 06/23/11-1021 Copies to: SOURCE ECTOCERVICAL/ENDOCERVICAL Thin Prep with Reflex HPV Test PATIENT INFORMATION ACTUAL COLLECTION DATE: 06/22/11 DATE OF PRIOR SPECIMEN: 09/17/09 PATIENT HISTORY: Last menstrual period not given. ADEQUACY OF SPECIMEN Satisfactory for evaluation * Transformation zone component identified * DIAGNOSIS NEGATIVE FOR INTRAEPITHELIAL LESION OR MALIGNANCY * This Pap test was evaluated with the assistance of the OsmetechPrep Pap Test Imaging System. The Pap Smear is a screening test designed to aid in the detection of premalign ant and malignant conditions of the uterine cervix. It is not a diagnostic procedure a nd should not be used as the sole means of detecting cervical cancer. Both false- positiv e and false-negative reports do occur. Depending on your risk status, a Pap smear almaz uld be obtained and evaluated every one to three years. Initial evaluation performed by Blanka CONKLIN(ASCP) 06/23/11 Final Interpretation electronically signed by: Blanka CONKLIN(ASCP) 06/23/11 1201 -- -- DEPARTMENT OF PATHOLOGY, [address] [place] [address] [facility] Permit #[id number] Loi Avery M.D. Director Darion Shanks M.D. Transcript Clerk Dir ladonna -- 51 Greater than or equal to 211 is normal. . 52 . Normally Menstruating Females: Follicular Phase: 2.5-10.2 Mid-Cycle Peak : 3.4-33.4 Luteal Phase : 1.5-9.1 ..............: <0.3 Postmenopausal........: 23.0-116.3 Males.................: 1.4-18.1 . 53 Recent studies consider the lower limit of 32.0 ng/mL to be a threshold for optimal health. Kevin ALLEN. J Nutr. 2005 Sep;135(2):317-22. 54 >59 mL/min/1.73m2 55 >59 mL/min/1.73m2 Note: Persistent reduction for 3 months or more in an eGFR <60 mL/min/1.73m2 defines CKD. Patients with eGFR values >=60 mL/min/1.73m2 may also have CKD if evidence of persistent proteinuria is present. Additional information may be found at www.kidney.org/professionals/kdoqi. 56 Anion gap measurement may be of limited value in the presence of any alkalosis, especially in a combined acid base disorder. . 57 Note change in reference range as of 03/28/08. The change was based on recommendations from the [place] [employer]. 58 Please note change in reference range effective 08 . 59 A metabolite of Naproxen, O-desmethylnaproxen, has been shown to interfere with the Jendrkedarik-Mathew method for measuring total bilirubin. Samples from patients who have taken Naproxen have shown spurious elevation in total bilirubin levels. 60 Because ethnic data is not always readily available, this report includes an eGFR for both -Americans and non- Americans. The National Kidney Disease Education Program (NKDEP) does not endorse the use of the MDRD equation for patients that are not between the ages of 18 and 70, are , have extremes of body size, muscle mass, or nutritional status, or are non- or non-. According to the National Kidney Foundation, irrespective of diagnosis, the stage of the disease is based on the level of kidney function: Stage Description GFR(mL/min/1.73 m(2)) 1 Kidney damage with normal or decreased GFR 90 2 Kidney damage with mild decrease in GFR 60-89 3 Moderate decrease in GFR 30-59 4 Severe decrease in GFR 15-29 5 Kidney failure <15 (or dialysis) 61 PLEASE NOTE NEW REFERENCE RANGES. 62 ---- RUN DATE: 09/18/09 [facility] NMI LIVE PAGE 1 RUN TIME: 1208 Specimen Inquiry RUN USER: INTERFACE -- Name: DILLONKATHYDYLON Sauer#: [id number] Status: REG REF Re09/17/09 Age/Sex: 49/F Unit#: [id number] Location: [facility] : 58 -- Specimen: [id number] SOUT Spec Date: 09/17/[address]: Holli buchanan MD Spec Type: CYTOLOGY Received: 09/18/09 Copies to: SOURCE ECTOCERVICAL/ENDOCERVICAL Thin Prep with Reflex HPV Test PATIENT INFORMATION ACTUAL COLLECTION DATE: 09/17/09 LAST MENSTRUAL PERIOD: 08/06/09 ADEQUACY OF SPECIMEN Satisfactory for evaluation * Transformation zone component identified * DIAGNOSIS NEGATIVE FOR INTRAEPITHELIAL LESION OR MALIGNANCY * This Pap test was evaluated with the assistance of the OsmetechPrep Pap Test Imaging System. The Pap Smear is a screening test designed to aid in the detection of premalign ant and malignant conditions of the uterine cervix. It is not a diagnostic procedure a nd should not be used as the sole means of detecting cervical cancer. Both false- positiv e and false-negative reports do occur. Depending on your risk status, a Pap smear almaz uld be obtained and evaluated every one to three years. Final Interpretation electronically signed by: Rahul FARIAS(ASCP) 09/18/09 120 8 -- -- DEPARTMENT OF PATHOLOGY, [address] [place] [address] [facility] Permit #[id number] Loi Avery M.D. Director Darion Shanks M.D. Transcript Clerk Dir ladonna -- 63 PLEASE NOTE NEW REFERENCE RANGES. 64 Anion gap measurement may be of limited value in the presence of any alkalosis, especially in a combined acid base disorder. . 65 Note change in reference range as of 03/28/08. The change was based on recommendations from the [place] Diabetes [employer]. 66 Please note change in reference range effective 08 . 67 A metabolite of Naproxen, O-desmethylnaproxen, has been shown to interfere with the Jendrassik-Collinsville method for measuring total bilirubin. Samples from patients who have taken Naproxen have shown spurious elevation in total bilirubin levels. 68 Because ethnic data is not always readily available, this report includes an eGFR for both -Americans and non- Americans. The National Kidney Disease Education Program (NKDEP) does not endorse the use of the MDRD equation for patients that are not between the ages of 18 and 70, are , have extremes of body size, muscle mass, or nutritional status, or are non- or non-. According to the National Kidney Foundation, irrespective of diagnosis, the stage of the disease is based on the level of kidney function: Stage Description GFR(mL/min/1.73 m(2)) 1 Kidney damage with normal or decreased GFR 90 2 Kidney damage with mild decrease in GFR 60-89 3 Moderate decrease in GFR 30-59 4 Severe decrease in GFR 15-29 5 Kidney failure <15 (or dialysis) 69 -- REFERENCE VALUE -- 25-HYDROXY D TOTAL (D2+D3) Optimum levels in the normal population are 25-80 Test Performed by: [facility] Dpt of Lab Med and Pathology [address] [place] [id number] Linux System Engineer: Chava Hope III, M.D. Procedures Date Code Description Status 10/07/2011 [id number] Colonoscopy Completed Encounters Type Date Location Provider Dx Diagnosis Office Visit 10/20/2018 Main Office Narciso Gan, R10.9 Unspecified abdominal 11:45a MD pain Office Visit 09/26/2018 Main Office Holli Rosario Z00.00 Encntr for general 2:45p Deja Simon adult medical exam w/o abnormal findings G35 Multiple sclerosis Z12.31 Encntr screen mammogram for malignant neoplasm of breast E53.8 Deficiency of other specified B group vitamins M25.511 Pain in right shoulder R79.89 Other specified abnormal findings of blood chemistry M54.5 Low back pain Office Visit 06/22/2018 2:30p Main Office Holli Rosario M79.602 Pain in left arm Deja Simon Office Visit 05/16/2018 4:30p Main Office Holli Rosario H26.9 Unspecified Deja Simon cataract R05 Cough R11.0 Nausea S40.862A Insect bite (nonvenomous) of left upper arm, init encntr N28.89 Other specified disorders of kidney and ureter R35.0 Frequency of micturition Z23 Encounter for immunization Office Visit 12/26/2017 11:00a Main Office Holli Rosario J20.9 Acute bronchitisAurora M.D. unspecified R63.4 Abnormal weight loss J01.90 Acute sinusitis, unspecified Office Visit 09/20/2017 4:30p Main Office Holli Simon M.D. R11.0 Nausea G47.00 Insomnia, unspecified H53.2 Diplopia Office Visit 08/10/2017 10:15a Main Office Holli Rosario Z00.01 Encounter for Deja Simon general adult medical exam w abnormal findings R11.0 Nausea Z12.31 Encntr screen mammogram for malignant neoplasm of breast E78.00 Pure hypercholesterolemia, unspecified H53.2 Diplopia G47.00 Insomnia, unspecified D75.89 Other specified diseases of blood and blood-forming organs Office Visit 03/12/2017 9:00a Main Office Holli Simon M.D. R12 Heartburn R11.0 Nausea R53.83 Other fatigue S30.860A Insect bite (nonvenomous) of lower back and pelvis, init Z12.31 Encntr screen mammogram for malignant neoplasm of breast Office Visit 11/26/2014 4:30p Main Office Holli Simon, 719.44 Pain Joint Hand M.DJanet V76.12 Screening Mammogram Malig Dirk Other Office Visit 05/29/2014 2:45p Main Office Holli Rosario V70.0 Examination General Deja Simon Medical Routine AT [facility] 789.06 Pain Abdominal Epigastric 723.1 Cervicalgia 311 Depressive Disorder Not Elsewhere Spec 782.0 Skin Sensation Disturbance V17.3 History Family Ischemic Heart Disease V76.51 Special Screening For Malignant Neoplasms Colon Office Visit 05/07/2014 4:30p Main Office Anais Mtz, 461.8 Sinusitis Acute SMALL BUSINESS CONSULTANT-C Other Office Visit 04/10/2014 11:45a Main Office Holli Rosario 789.06 Pain Abdominal Deja Simon Epigastric 789.02 Pain Abdominal Left Upper Quadrant 724.5 Backache Unspec Office Visit 08/06/2013 10:15a Main Office Holli Rosario 599.0 UTI Urinary Tract Deja Simon Infection Site Not Spec Office Visit 08/23/2012 3:15p Main Office Holli Rosario 314.00 Attention Deficit Deja Simon Disorder W/O Mention Of Hyperactivity 780.52 Insomnia Unspecified 465.9 URI Upper Respiratory Infections Acute Unspec Sites Office Visit 12/22/2011 2:15p Main Office Holli Simon M.D. 723.1 Cervicalgia 782.0 Skin Sensation Disturbance 305.1 Tobacco Use Disorder Office Visit 10/12/2011 5:00p Main Office Holli Rosario 300.00 Anxiety State Deja Simon Unspec 466.0 Bronchitis Acute Office Visit 06/22/2011 1:30p Main Office Holli Rosario V72.31 Routine Human Resource Professional Deja Simon Examination 311 Depressive Disorder Not Elsewhere Spec 300.00 Anxiety State Unspec 780.52 Insomnia Unspecified 305.1 Tobacco Use Disorder 314.00 Attention Deficit Disorder W/O Mention Of Hyperactivity 627.2 Menopausal Or Female Climacteric State, Symptomatic 786.2 Cough Office Visit 06/04/2011 9:30a Main Office Brea Serra 519.11 Acute Bronchospasm Deja Avitia 465.8 Upper Respiratory Infections Acute Other Multiple Sites Office Visit 05/06/2011 11:15a Main Office Holli Rosario 300.00 Anxiety State Deja Simon Unspec 780.52 Insomnia Unspecified 796.2 Blood Pressure Reading Elevated W/O Hypertension 305.1 Tobacco Use Disorder Office Visit 03/25/2011 11:30a Main Office Holli Rosario 300.00 Anxiety State Deja Simon Unspec 311 Depressive Disorder Not Elsewhere Spec 796.2 Blood Pressure Reading Elevated W/O Hypertension Office Visit 02/22/2011 2:30p Main Office Holli Rosario 300.00 Anxiety State Deja Simon Unspec 311 Depressive Disorder Not Elsewhere Spec Office Visit 02/09/2011 1:45p Main Office Holli Rosario 300.00 Anxiety State Deja Simon Unspec 311 Depressive Disorder Not Elsewhere Spec 796.2 Blood Pressure Reading Elevated W/O Hypertension Office Visit 01/18/2011 9:30a Main Office Holli Rosario 300.00 Anxiety State Deja Simon Unspec 311 Depressive Disorder Not Elsewhere Spec V15.06 Allergy To Insects Office Visit 09/15/2010 2:15p Main Office Haritha Lange, 461.0 Sinusitis Acute SMALL BUSINESS CONSULTANT-C Maxillary Office Visit 07/14/2010 1:45p Main Office Holli Rosario 311 Depressive Disorder Deja Simon Not Elsewhere Spec 300.00 Anxiety State Unspec Office Visit 12/22/2009 11:00a Main Office Holli Simon, 787.02 Nausea Alone MMaru 796.2 Blood Pressure Reading Elevated W/O Hypertension Office Visit 10/09/2009 1:45p Main Office Holli Simon, 787.02 Nausea Alone M.DJanet 627.2 Menopausal Or Female Climacteric State, Symptomatic 785.1 Palpitations Office Visit 09/17/2009 10:15a Main Office Holli Rosario V72.31 Routine Human Resource Professional Deja Simon Examination 311 Depressive Disorder Not Elsewhere Spec 314.00 Attention Deficit Disorder W/O Mention Of Hyperactivity 787.02 Nausea Alone 388.30 Tinnitus Unspecified V76.51 Special Screening For Malignant Neoplasms Colon 723.1 Cervicalgia Office Visit 05/22/2009 11:30a Main Office Holli Rosario 311 Depressive Disorder Deja Simon Not Elsewhere Spec 314.00 Attention Deficit Disorder W/O Mention Of Hyperactivity 626.4 Irregular Menstrual Cycle Plan of Treatment 12/12/2018 - Holli Simon M.D.R41.82 Altered mental status, unspecifiedComments:PT IS NOW DOING WELL OVERALL, JUST FATIGUED, NO FURTHER MYOCLONIC JERKING/ SEIZURE EPISODES, TOLERATING THE INCREASE IN LAMOTRIGINE PER DR. REYES'S GUIDANCE, ALSO TOLERATING LEVETIRACETAM. PLAN TO F/U WITH DR. VERGARA IN A FEW WEEKS, WILL BE UP TO LAMOTRIGINE GOAL OF 200 MG PER DAY BY THEN AND THENPLAN WAS FOR DR. VERGARA TO TAPER OFF THE LEVETIRACETAM. 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 MOOD HAS BEEN OK. SHE IS VERY HAPPY ABOUT HER NEW PUPPY, REALLY ENJOYING HER.Recommendations:-- CONTINUE YOUR CURRENT MEDICATION PER DR. REYES AND THEN FOLLOW-UP WITH DR. VERGARA EARLY JANUARY SCHEDULED -- WATCH FOR RASH/ LESIONS IN YOUR MUCOSA SIGNS OF GARCÍA JASSON SYNDROME AND NOTIFY DR. REYES RIGHT AWAY -- CONGRATULATIONS ON YOUR NEW PUPPY
--- NOTE | 2018-12-27 16:14 | ED ---
Neurological HPI - HPI Summary HPI Summary: Patient seen by physician at 1555. 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 She additionally c/o headache and sore throat, and she denies any other pain. She used Nyquil to relieve the throat pain. She has been on seizure medication. 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, Still Present Timing: Sudden Onset Onset Severity: Moderate Current Severity: Moderate Neurological Deficit Location: RUE, LUE, RLE, LLE Pain Intensity: 0 Pain Scale Used: 0-10 Numeric Character: Other: - uncontrollable muscle movements of upper and lower extremities Aggravating: Nothing Alleviating: Nothing Associated Signs and Symptoms: Positive: Headache - Additional Pertinent History Primary Care Physician: [id number] - Allergy/Home Medications Allergies/Adverse Reactions: Allergies Allergy/AdvReac Type Severity Reaction Status Date / Time bee venom protein (honey bee) Allergy Severe Swelling Verified 11/20/18 11:10 codeine Allergy Severe Nausea Verified 11/20/18 11:10 PMH/Surg Hx/FS Hx/Imm Hx Endocrine/Hematology History: Denies: Hx Diabetes, Hx Systemic Lupus Erythematosus Cardiovascular History: Denies: Hx Congestive Heart Failure, Hx Hypertension, Hx Pacemaker/ICD Respiratory History: Denies: Hx Sleep Apnea GI History: Reports: Other GI Disorders - gastritis- uses omeprazole History: Reports: Other Problems/Disorders - stress incontinence Denies: Hx Renal Disease Musculoskeletal History: Reports: Other Musculoskeletal History - DDD in neck Denies: Hx Rheumatoid Arthritis Sensory History: Reports: Hx Cataracts - both eyes, Hx Contacts or Glasses - glasses, Hx Vision Problem - Double vision Denies: Hx Hearing Aid Opthamlomology History: Reports: Hx Cataracts - both eyes, Hx Contacts or Glasses - glasses, Hx Vision Problem - Double vision Neurological History: Reports: Hx Nerve Disease Psychiatric History: Reports: Hx Anxiety - occassional from MS new DX, Hx Depression - on meds Denies: Hx Panic Disorder - Cancer History Hx Chemotherapy: No Hx Radiation Therapy: No - Surgical History Surgery Procedure, Year, and Place: appendectomy-age 15. CATARACTS Hx Anesthesia Reactions: No Infectious Disease History: No Infectious Disease History: Denies: Traveled Outside the [place] in Last 30 Days - Family History Known Family History: Positive: Cardiac Disease - Social History Alcohol Use: Daily Alcohol Amount: 1/2 a beer 5 days a week Hx Substance Use: Yes Substance Use Type: Reports: None Substance Use Comment - Amount & Last Used: Patient is prescribed medical marijuana Hx Tobacco Use: Yes Smoking Status (MU): Former Smoker Do You Chew or Dip Tobacco: No Amount Used/How Often: not a very heavy smoker- social smoker Review of Systems Positive: Sore Throat Positive: Other - uncontrollable muscle movements of the upper and lower extremities. Negative: Myalgia Positive: Headache - mild All Other Systems Reviewed And Are Negative: Yes Physical Exam - Summary Physical Exam Summary: VITAL SIGNS: Reviewed. GENERAL: Patient is a well-developed and nourished female who is lying comfortable in the stretcher. Patient is not in any acute respiratory distress. HEAD AND FACE: No signs of trauma. No ecchymosis, hematomas or skull depressions. No sinus tenderness. EYES: PERRLA, EOMI x 2, No injected conjunctiva, no nystagmus. No photophobia. EARS: Hearing grossly intact. Ear canals and tympanic membranes are within normal limits. MOUTH: Oropharynx within normal limits. NECK: Supple, trachea is midline, no adenopathy, no JVD, no carotid bruit, no c- spine tenderness, neck with full ROM. No meningeal signs, no Kernig's or brudzinskis signs. CHEST: Symmetric, no tenderness at palpation LUNGS: Clear to auscultation bilaterally. No wheezing or crackles. CVS: Regular rate and rhythm, S1 and S2 present, no murmurs or gallops appreciated. ABDOMEN: Soft, non-tender. No signs of distention. No rebound no guarding, and no masses palpated. Bowel sounds are normal. EXTREMITIES: FROM in all major joints, no edema, no cyanosis or clubbing. NEURO: Alert and oriented x 3. Shaking of upper and lower extremities that seems to be involuntary, but otherwise normal. Speech is normal and follows commands. SKIN: Dry and warm GCS: 15 Triage Information Reviewed: Yes Vital Signs On Initial Exam: Initial Vitals Temp Pulse Resp BP Pulse Ox 97.5 F 86 24 179/106 99 05/22/19 16:02 12/27/18 16:02 12/27/18 16:02 12/27/18 16:02 12/27/18 16:02 Vital Signs Reviewed: Yes Diagnostics - Vital Signs Vital Signs Temp Pulse Resp BP Pulse Ox 12/27/18 16:02 97.5 F 86 24 179/106 99 - Laboratory Result Diagrams: 12/27/18 16:37 12/27/18 16:37 Lab Statement: Any lab studies that have been ordered have been reviewed, and results considered in the medical decision making process. - EKG 1608 Cardiac Rate: NL - 85 BPM EKG Rhythm: Sinus Rhythm EKG Comparison: No Significant Change - Similar to EKG taken on 12/05/2018 Summary of EKG Findings: Nml axis, no ST elevations Re-Evaluation - Re-Evaluation First Eval Re-Evaluation Time: 17:10 Change: Improved Comment: I spoke with the patient concerning discharge home. Course/Dx - Course Assessment/Plan: Patient seen by physician at 1555. 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 She additionally c/o headache and sore throat, and she denies any other pain. She used Nyquil to relieve the throat pain. She has been on seizure medication. Dr. Vergara from neurology came and assessed the patient at bedside. Dr. Vergara order a EEG. Blood work without any significant abnormality except for hemoglobin 11.4, calcium is 8.1 and total protein is 5.8. After the EEG was read by Dr. Vergara he recommends for the patient to be discharged home and follow-up at his office tomorrow. The patient and the patients family member also agree therefore the patient will be discharged home with follow-up with Dr. Vergara as an unscheduled visit. Patient is hemodynamically stable alert and oriented 3. - Diagnoses Provider Diagnoses: Unspecified convulsions Discharge - Sign-Out/Discharge Documenting (check all that apply): Patient Departure - Patient will be discharged home. Patient Received Moderate/Deep Sedation with Procedure: No - Discharge Plan Condition: Stable Disposition: HOME Patient Education Materials: Muscle Spasm (ED) Referrals: Holli Simon MD [Primary Care Provider] - Additional Instructions: F/U with Dr. Vergara as schedule - Billing Disposition and Condition Condition: STABLE Disposition: Home - Attestation Statements Document Initiated by Aaron: Yes Documenting Scribe: Amada Muniz Provider For Whom Aaron is Documenting (Include Credential): Dr. Leon Acosta MD Scribe Attestation: Amada Del Rio scribed for Dr. Leon Acosta MD on 12/28/18 at 2130. Scribe Documentation Reviewed: Yes Provider Attestation: The documentation as recorded by the Amada hilton accurately reflects the service I personally performed and the decisions made by me, Dr. Leon Acosta MD Status of Scribe Document: Viewed
[2018-12-27 17:04] LABS: ABS Eosinophils 0.2 10^3/ul (0-0.6); ABS Lymphocytes 1.9 10^3/ul (1.0-4.8); ABS Monocytes 0.9 10^3/ul (0-0.8); ABS Neutrophils 5.9 10^3/ul (1.5-7.7); Eosinophil % 2.1 %; Hematocrit 34 % (35-47); Hemoglobin 11.4 g/dL (12.0-16.0); Lymphocyte % 20.9 %; Mean Corpuscular HGB Conc 33 g/dL (31-36); Mean Corpuscular Hemoglobin 31 pg (27-31); Mean Corpuscular Volume 94 fL (80-97); Platelet Count 181 10^3/uL (150-450); Red Blood Count 3.62 10^6 /uL (3.70-4.87); Red Cell Distribution Width 13 % (10.5-15); White Blood Count 8.9 10^3/uL (3.5-10.8)
[2018-12-27 17:14] LABS: Albumin 3.7 g/dL (3.2-5.2); Albumin/Globulin Ratio 1.8 (1-3); BUN/Creatinine Ratio 12.2 (8-20); Calcium 8.1 mg/dL (8.6-10.3); EGFR African American 86.3 (>60); EGFR Non-African American 71.4 (>60); Globulin 2.1 g/dL (2-4); Magnesium 1.9 mg/dL (1.9-2.7); Potassium 4.1 mmol/L (3.5-5.0); Total Bilirubin 0.4 mg/dL (0.2-1.0); Total Protein 5.8 g/dL (6.4-8.9)
[2018-12-27 18:37] VITALS: BP 167/104
--- NOTE | 2018-12-27 19:04 | CONS ---
CC: Dr. Holli Simon; Dr. Jean Carlos Vergara* CONSULTATION REPORT: DATE OF CONSULT: 12/27/18 LOCATION: Current location is in the ER, bed 17. PRIMARY CARE PHYSICIAN: Dr. Holli Simon. REASON FOR CONSULT: Seizure like activity. HISTORY OF PRESENT ILLNESS: Ms. Shelton is a 58-year-old female well known to me. She has a history of secondary progressive MS. She has been seen by the [facility] MS Team as well. Most recently, she has been treated with high dose pulse steroids, which she received her last dose last Tuesday. I did receive a call this Tuesday from her , Beena who states that she did not seem to respond as well to the IV steroids this time. She had been sleeping all week, which normally gives her a lot of energy. Today, though her tells me that the following day yesterday, she actually was better and had a lot of energy. The patient has a history of double vision and vertigo as well as some depression and anxiety and she has history of cognitive impairment which has slowly been worsening with progression of the disease. Her states that she has actually been under fairly low stress recently and she has recently had some good news from her son. She was seen in the hospital on by Dr. Billy. At that time, she was having some twitching episodes, initially starting when she was in [place], [place], visiting her son. She apparently did not lose consciousness during those, but the day prior to admission on 12/05/18, she had complete loss of awareness with some abnormal jerking movements that lasted about 2 minutes and then she apparently became paralyzed. She was unable to move, but could hear everyone around her per the prior consultation. It was noted that this has been the worst episode she has ever had, although she had had 4 episodes in the past few months, they were similar in nature, but no loss of motor tone. She states that she was paralyzed for about 2 hours at that time. After 2 hours, it was reported that she was able to verbalize and move her extremities like nothing had happened. She had other episodes as well and in the ER, she apparently had some abduction and flexion that the arm flexing towards her anterior torso. At that time, she denied any headaches, visual disturbances, or difficulty swallowing. At the time that Dr. Billy saw her, her neurologic symptoms had resolved other than some cognitive impairment and diffuse hyperreflexia. She did have an EEG, but no episodes were captured. The EEG was read as normal, but could not rule out the possibility of underlying seizures, although there was some concern that these could be paroxysmal, nonepileptic events. She was started at that time on Keppra 250 mg twice daily. She had already been put on a low dose of Lamictal 50 mg a day for a history of depression and anxiety. There was some concern about the Keppra regarding her history of depression and she was advised to speak with her treating psychiatrist, Dr. Aleman about possibly increasing the Lamictal. I did get a call from the a week or so ago stating that she had in fact increased her dose of Lamictal, now had titrated up to 100 mg p.o. b.i.d. She went for a level yesterday, but the results are not back yet. Today, her states that she was in her usual state of health and had a pretty good day when she suddenly started to develop some jerking like movements. At times, she would become somewhat unresponsive and grunt, other time she would wake up and say "I am back." She was transferred here to the ER with similar episodes and I actually witnessed multiple episodes in the ER where she would flex in anterior flexion, flexion of her arms and legs and jerking like movements associated with no loss of consciousness, but some grunting. After a few seconds to a minute or so, they would resolve and she would be fully conscious and able to speak. She subsequently was started having jerking again and then she would not answer questions or struggle to answer questions, although she was understanding and following commands. There was no generalized tonic-clonic activity. There was no bladder or bowel incontinence. No tongue biting reported. Based on this, I called ophthalmic technician apprentice down to record an EEG while she is having the events that is pending. In the meantime, her states that she has otherwise been in her usual state of health, other than a recent cold, no other illnesses. She states that she has a mild headache, but not severe. She has had no worsening double vision. No new numbness, tingling or weakness. Continues to have some cognitive deficits, but these are chronic and typical for her. There has been nothing to suggest that she has had a recent flare. PAST MEDICAL HISTORY: As noted above, secondary MS, gastritis, degenerative joint disease, stress incontinence, anxiety and depression. PAST SURGICAL HISTORY: Includes cataract surgery and appendectomy. CURRENT MEDICATIONS: Include: 1. Keppra 250 mg daily. 2. Lamictal 100 mg p.o. b.i.d. 3. Vitamin E. 4. Zofran p.r.n. for nausea. 5. Multivitamin. 6. Reglan 5 mg p.o. b.i.d. p.r.n. 7. Melatonin. 8. Meclizine 12.5 mg t.i.d. 9. Gabapentin 300 mg p.o. t.i.d. 10. Docusate. 11. Duloxetine 120 mg p.o. q.a.m. 12. Cyanocobalamin 1000 mcg every other day. 13. Cannabis. 14. She takes Adderall 90 mg p.o. q.a.m. 15. Alprazolam 1 mg at bedtime. ALLERGIES: BEE VENOM and CODEINE. FAMILY HISTORY: She has a family history with coronary artery disease. SOCIAL HISTORY: She used to smoke in the past, but she only smokes marijuana on a daily basis now, which does help her. She has 1 to 2 beers every evening. She denies any other recreational drug use. She takes the marijuana for her history of spasms. Her is Beena, area code is [phone] who is her surrogate decision maker. REVIEW OF SYSTEMS: Review of systems in 14-organ systems as noted above. She also complained of some nausea. Otherwise, as noted above in the HPI. PHYSICAL EXAM: Vital Signs: Blood pressure 179/106, previously 142/82; temp of 97.5; heart rate of 86; O2 sat of 99% on room air. In general, she is a well - nourished, well-developed female in no acute distress. She is lying in the hospital bed. At times having some jerking like movements and some grunting, other times she is fully aware and answering questions. She is pleasant, well dressed, well groomed. Her , Beena is at the bedside. HEENT: She is normocephalic, atraumatic. Sclerae are anicteric. Mucous membranes are moist. Oropharynx is clear. Nares are patent. Neck is supple. No thyromegaly. No carotid bruits. No meningismus. Chest: Clear to auscultation bilaterally. Cardiovascular is regular rate and rhythm. Abdomen is nontender, nondistended. Extremities: No clubbing, cyanosis, or edema. Her skin is warm and dry. On neurologic exam, she is awake. She is at times alert and oriented x3 and other times she is not speaking when she was having the jerking like movements. Her speech is fluent when she is speaking. There is no dysarthria. Mood is dysthymic. Affect, mood congruent. Cranial Nerves: Pupils are equally round and reactive to light and accommodation. Extraocular muscles appeared to be intact. Visual johnson are full. Face is symmetric. Facial sensation is intact to light touch. Hearing is intact bilaterally. Palate raises symmetrically. Tongue is midline. Motor Exam: She spontaneously moves all extremities antigravity. She has very good resistance, 5/5 throughout. There is no apparent drift. Her tone is normal at this time. Her reflexes are 3+ at the biceps and brachioradialis, 3+ at the triceps, 3+ at the patella, 2+ at the ankles, withdraw Babinski bilaterally. Sensation is intact to light touch and pinprick throughout. [id number] and rapid alternating movements are generally intact. Gat was not tested at this time. She was in bed and continues to have some events. DIAGNOSTIC STUDIES/LAB DATA: Lab work is pending. EEG is pending. ASSESSMENT AND PLAN: Ms. Shelton is a 58-year-old female with a history of secondary progressive multiple sclerosis, currently being treated with pulse steroids, last dose was Tuesday. She also has a history of anxiety and depression and follows with Psychiatry. She has recently had her Lamictal increased to 100 mg p.o. b.i.d., a level was drawn yesterday and is pending. She also has a history of seizure like activity. Prior EEG was normal. There was some concern that these could be nonepileptic events. She presented today with additional episodes. The episodes were intermittent in nature, involved some myoclonic like jerking of her arms and legs with some flexion at the torso and some grunting. At times, she was able to communicate through them, other times she did not speak, but quickly resolved after the movement stopped. She did have a CT scan done back on 12/05/18, which showed nonspecific white matter changes in the frontal and anterior parietal lobes, small vessel disease versus demyelinating disease. She has been followed serially with MRIs as well for her multiple sclerosis. Last MRI of the brain was on 04/03/18 showed multiple focal abnormal areas of increased signal intensity on T2 weighted imaging in the subcortical and periventricular white matter consistent with the patient's history of multiple sclerosis, which was stable and no abnormal enhancement seen. At that time, she was also noted to have no spinal cord lesions or areas of enhancement. At this point, I suspect that she may be suffering from some continued nonepileptic events, which I suspect that she presented with earlier this month. I did have a long discussion with her , Beena about these and the plan is to get an EEG and hopefully capture some of these while she is being recorded. These events are typical per the patient and her and hopefully if we can capture these and there is no epileptiform activities, then I am more confident that she is having some nonepileptic events, which are likely related to the underlying stressors in her life. With that said, percentage of people with nonepileptic events also have underlying seizures. She does have demyelinating disease certainly at a higher risk for seizures. She has previously been treated with Keppra, but did not tolerate it well and there was some concern regarding her depression. Most recently, her Lamictal has been increased to 100 mg p.o. b.i.d., level is pending. I think this is a good choice because it is a good antiseizure medicine, but also it is a very good mood stabilizer, given her history of depression and anxiety, I think it would be beneficial. This was increased by her psychiatrist. The plan was to stop the Keppra once she had therapeutic Lamictal level. She has only been on the higher dose of Lamictal for 6 days, so there may not be enough time to see the full effect. She does take Adderall which can lower seizure threshold, but again my suspicion is that these are nonepileptic. In addition, she has a prescription for Reglan, which could cause some abnormal movements, although this does not appear to be tardive dyskinesia or extrapyramidal symptoms. I would recommend that we hold any Reglan at this time. I discussed with her regarding possibility of admission. I think if the EEG shows no evidence for epileptic seizures, then admission would be based on the ability for the patient and her to be safe at home. She may need to be admitted for observation overnight. On the other hand, if she stabilizes in the ER and her symptoms resolve, she would likely be safe to go home with the instructions to return to the ER with any new seizure like activity. I will continue to follow her and make further recommendations as necessary. Thank you for the opportunity to participate in the care of this very interesting patient. [id number]/[facility] #: [id number] NICOLE
--- NOTE | 2018-12-27 21:09 | EEG ---
CC: Dr. Jean Carlos Vergara* ELECTROENCEPHALOGRAPHY: DATE OF STUDY: 12/27/18 ORDERING PHYSICIAN: Dr. Jean Carlos Vergara. CLINICAL PROBLEM: Kathy Shelton is a 58-year-old woman with a history of multiple sclerosis, who came to the emergency room with seizure-like activity and uncontrollable motor movements. EEG was ordered to look for epileptiform activity. REPORT: This was a 16-channel EEG. In the beginning of the record, there was quite a bit of movement artifact. In between movement artifact, a normal background rhythm could be seen with a posterior dominant alpha rhythm ranging between 8 to 10 Hz and attenuating with eye opening. As the record continued, the background rhythm remained symmetric. Throughout the record, there was intermittent movement and muscle activity with changes noted both on EKG as well as in cerebral leads consistent with movement artifact. The patient was noted to have twitching and grunting. During this activity, there was intermittent movement artifact, normal cerebral activity was noted before and after the movement artifact. There was no significant asymmetry to the background rhythm. There was no evidence of sharp or spike wave activity. There was no evidence of seizure activity. CLINICAL IMPRESSION: This was a normal, but limited EEG. There was no epileptiform activity noted during the patient's movements. The record was limited by movement. Clear episodes of movement were captured with no EEG correlate. [id number]/[facility] #: [id number] [facility] SYSTEMRahul
== END 2018-12-27 17:15 | disposition home or self-care (01) ==
LOC: ED 15:44
DX: R56.9 Unspecified convulsions (principal); Z87.891 Personal history of nicotine dependence
CPT/HCPCS: 36415; 80053; 83605; 83735; 85025; 93005; 95816; 99283